=== PATIENT | male | born 1990 | race Caucasian/White ===

== ENCOUNTER → 2020-04-21 10:24 | Outpatient (CLI) | payer OTHER, SELFPAY ==
--- NOTE | ~2020-04-21 | US_ITS ---
EXAMINATION: US abdomen complete DATE: 04/21/2020 10:47 INDICATION: Abnormal liver function tests. TECHNIQUE: Multiple grayscale and Doppler ultrasound images of the abdomen were obtained. COMPARISON: None FINDINGS: Abdominal aorta is normal in caliber. Inferior vena cava is normal. The visualized portions of the head and body of the pancreas are normal. There is diffuse hepatic steatosis. No liver surfac e nodularity. There is normal flow in main portal vein. The gallbladder is normal in size. No gallsto froy or gallbladder wall thickening. There was no sonographic Pereyra sign. The common duct is normal a nd measures 4 mm. The spleen is normal. The kidneys are normal. IMPRESSION: 1. Diffuse hepatic steatosis. Reviewed, dictated and finalized at location A. ER COVERSTITCH
== END ==
PROVIDERS: PCP Physician Assistant; Visit Provider Physician Assistant
DX: R79.89 Other specified abnormal findings of blood chemistry (principal); R10.11 Right upper quadrant pain; K76.0 Fatty (change of) liver, not elsewhere classified
CPT/HCPCS: 76700

== ENCOUNTER → 2021-10-06 12:48 | Outpatient (CLI) | payer OTHER, SELFPAY ==
--- NOTE | ~2021-10-06 | XR_ITS ---
EXAMINATION: XR foot LT min 3V DATE: 10/06/2021 13:03 INDICATION: Left great toe pain. TECHNIQUE: 4 views of left foot were obtained. COMPARISON: None. FINDINGS: Bone alignment is normal. No fracture. There is mild osteoarthritis of first and fifth meta tarsophalangeal joints. There is an enthesophyte at posterior aspect of calcaneal tuberosity. IMPRESSION: 1. Mild polyarticular osteoarthritis. Reviewed, dictated and finalized at location A.
== END ==
PROVIDERS: PCP Physician Assistant; Visit Provider Physician Assistant
DX: M79.675 Pain in left toe(s) (principal); M19.072 Primary osteoarthritis, left ankle and foot
CPT/HCPCS: 73630

== ENCOUNTER 2024-02-23 20:24 | Emergency (ER) | payer OTHER, SELFPAY ==
--- NOTE | ~2024-02-23 | CT_ITS ---
Non-contrast Head CT History: Syncope Technique: Axial non-contrast imaging of the brain was performed. Dose reduction technique was used on this scan by utilizing automated exposure control and iterative reconstruction technique. The dose -length product (DLP) was 681.00 mGy-cm. Findings: There is no evidence of intracranial hemorrhage, mass lesion, or acute infarct. Brain par enchyma appears normal. The ventricles and subarachnoid spaces are normal in size. The calvarium ap pears normal. The visualized paranasal sinuses and mastoid air cells are clear. Impression: No significant abnormality seen. Reviewed, dictated and finalized at location . Impression: No significant abnormality seen.
--- NOTE | ~2024-02-23 | XR_ITS ---
XR chest 2V DATE: 02/23/2024 21:05 INDICATION: Syncopal episode. History of hypertension. TECHNIQUE: PA and lateral views COMPARISON: None FINDINGS: Normal heart size. No hilar or mediastinal enlargement. No pulmonary infiltrate or consolid ation, pleural effusion or pulmonary vascular congestion or pneumothorax. Included skeletal structures are unremarkable. IMPRESSION: No active cardiopulmonary disease Reviewed, dictated and finalized at location A.
[2024-02-23 20:27] VITALS: BP 147/84; PULSE 100; RESP 14; TEMP 36.6; O2SAT 99
--- NOTE | 2024-02-23 20:32 | ECG_ITS ---
Test Date: 2024-02-23 20:49:23 Measurements Intervals [place] Rate: 91 P: 53 NE: 145 QRS: 12 QRSD: 98 T: 45 QT: 332 QTc: 410 Interpretive Statements SINUS RHYTHM VOLTAGE CRITERIA FOR LVH CONSIDER INFERIOR INFARCT, AGE INDETERMINATE ABNORMAL ECG No previous ECG available for comparison Electronically Signed On 02-24-2024 06:29:43 CDT by Stan Ham D.O.
[2024-02-23 21:08] LABS: Basophils Absolute Auto 0.1 K/mm3 (0.0-0.1); Basophils Percent Auto 0.9 % (0.2-1.2); Eosinophils Absolute Auto 0.2 K/mm3 (0-0.3); Hematocrit 44.2 % (42.0-52.0); Hemoglobin 14.9 g/dL (14.0-18.0); Immature Granulocyte Absolute 0.04 K/mm3 (0.00-0.031); Immature Granulocyte Percent A 0.5 % (0-0.5); Lymphocytes Absolute Auto 2.65 K/mm3 (0.9-3.2); Lymphocytes Percent Auto 35.8 % (18.3-44.2); Mean Corpuscular HGB Conc 33.7 g/dl (32-36); Mean Corpuscular Hemoglobin 29.7 pg (26-34); Mean Platelet Volume 10.3 fl (7.4-10.4); Monocytes Absolute Auto 0.7 K/mm3 (0.1-0.6); Monocytes Percent Auto 9.5 % (2.6-8.5); Neutrophils Absolute Auto 3.8 K/mm3 (1.3-6.7); Neutrophils Percent Auto 51.3 % (45.5-73.1); Platelet Count Result 224 k/mm3 (150-375); Red Blood Count 5.02 M/mm3 (4.6-6.20); Red Cell Distribution Width 13.3 % (11.5-14.5); White Blood Count 7.4 K/mm3 (4.5-10.0)
[2024-02-23 21:23] LABS: Alanine Aminotransferase 33 U/L (6-50); Albumin Level 4.6 g/dL (3.5-5.1); Alkaline Phosphatase 83 U/L (38-126); Anion Gap 12 mmol/L (4-12); Aspartate Amino Transferase 31 U/L (17-59); Bilirubin,Total 0.3 mg/dL (0.2-1.3); Blood Urea Nitrogen 17 mg/dL (9-20); Calcium 9.3 mg/dL (8.4-10.2); Carbon Dioxide 24 mmol/L (22-30); Chloride 101 mmol/L (98-107); Estimated CRCL calculation 123 ml/min; Estimated Glomerular Filt Rate > 60; Glucose 139 mg/dL (65-110); Potassium 3.7 mmol/L (3.4-5.0); Sodium 137 mmol/L (137-145)
[2024-02-23 22:07] VITALS: BP 136/76; PULSE 94; RESP 18; O2SAT 100
[2024-02-23 22:08] VITALS: BP 145/76; BP 145/93; PULSE 93
[2024-02-24 00:07] LABS: Magnesium 1.8 mg/dL (1.6-2.3)
[2024-02-24 00:19] LABS: Troponin I < 0.012 ng/mL (0.000-0.034)
[2024-02-24] MEDS: SODIUM CHLORIDE 0.9% IV 1,000 ML 999 ML IV CONT (00:38)
[2024-02-24 00:49] LABS: Add Urine Microscopic? NO; Appearance Urine Clear (Clear); Bilirubin Urine Negative (Negative); Blood Urine Negative (Negative); Color Urine Yellow (Yellow); Glucose Urine UA Negative (Negative); Ketones Urine Trace mg/dL (Negative); Leukocyte Esterase Ur Negative LEU/UL (Negative); Nitrate Urine Negative (Negative); Protein Urine Negative (Negative); Specific Grav Ur 1.019 (1.001-1.035); pH Urine 5.5 (5.0-9.0)
[2024-02-24 00:52] LABS: Lactic Acid Reflex 1.3 mmol/L (0.7-2.0)
[2024-02-24 00:55] LABS: Prothrombin Time 13.7 Seconds (11.1-14.7)
[2024-02-24 00:56] LABS: Partial Thromboplastin Time 27.4 Seconds (22.3-36.8)
[2024-02-24 01:10] LABS: D Dimer < 0.27 ug/mL (<0.48)
--- NOTE | 2024-02-24 01:13 | ED.SYNCOPE ---
HPI - Syncope General Chief Complaint: Syncope Stated Complaint: passed out hit head non responsive for 5 seconds Time Seen by Provider: 02/23/24 22:06 History of Present Illness HPI narrative: Patient is a 33-year-old male presents to the ER after a syncopal episode. He reports he took a hit off a marijuana vape, walked into his kitchen, began to feel dizzy, called out to his , then fell to the ground. Patient's reports he hit his head on the cabinet. Patient endorses positive loss of consciousness for 5 seconds. He reports his brought him to the ER. Patient has a history of high blood pressure and takes Nebivolol every day for about a year. He reports he vapes marijuana periodically, but not every day. Patient reports he buys his vapes at a dispensary. He reports he has never had a syncopal episode and has no history of diabetes. Patient denies any chest pain, shortness of breath, and other signs of illness. Related Data Allergies Allergy/AdvReac Type Severity Reaction Status Date / Time cefaclor Allergy Rash Verified 02/23/24 20:31 Review of Systems Review of Systems: All systems reviewed & are unremarkable except as noted in HPI and below Exam Narrative: GENERAL: Well appearing, well-nourished, non-toxic, in no acute distress. HEAD: Normocephalic, atraumatic. NECK: Supple. No adenopathy, no masses. RESPIRATORY: Airway patent, respirations nonlabored. Clear to auscultation bilaterally, no rales, rhonchi, wheezing. CARDIOVASCULAR: Regular rate and rhythm without murmurs, rubs, or gallops. Peripheral pulses 2+ and equal bilaterally. ABDOMINAL: Soft, nontender, nondistended, no hepatosplenomegaly. Normoactive BS. MUSCULOSKELETAL: Moves all extremities. Strength/ROM intact without gross deformities. SKIN: Warm, dry, normal color. No rashes. NEURO: A&O X3. Speech clear. Cranial nerves II-XII grossly intact. No ataxic movements. PSYCHIATRIC: Appropriate mood and affect. Normal interaction. Course Vital Signs Vital signs: Vital Signs Temperature 36.6 C 02/23/24 20:27 Pulse Rate 100 02/23/24 20:27 Respiratory Rate 14 02/23/24 20:27 Blood Pressure 147/84 H 02/23/24 20:27 Pulse Oximetry 99 02/23/24 20:27 Oxygen Delivery Room Air 02/23/24 20:27 Temperature 36.6 C 02/24/24 01:25 Pulse Rate 79 02/24/24 01:25 Respiratory Rate 18 02/24/24 01:25 Blood Pressure 124/64 02/24/24 01:25 Pulse Oximetry 99 02/24/24 01:25 Oxygen Delivery Room Air 02/23/24 20:27 MDM - Syncope MDM Narrative Medical decision making narrative: Patient is a 33-year-old male presents to the ER after a syncopal episode. He reports he took a hit off a marijuana vape, walked into his kitchen, began to feel dizzy, called out to his , then fell to the ground. Patient's reports he hit his head on the cabinet. Patient endorses positive loss of consciousness for 5 seconds. He reports his brought him to the ER. Patient has a history of high blood pressure and takes Nebivolol every day for about a year. He reports he vapes marijuana periodically, but not every day. Patient reports he buys his vapes at a dispensary. He reports he has never had a syncopal episode and has no history of diabetes. Patient denies any chest pain, shortness of breath, and other signs of illness. Patient's physical exam was unremarkable. His blood work is all within normal limits except for his glucose which is elevated to 139. Will give patient 1 L normal saline IV bolus, scan patient's head for trauma, and re-evaluate. Patient denies any pain at this time. Patient CT scan was negative for any acute abnormalities. Patient reports he has been feeling well the whole time he has been in the ER. Upon further discussion patient believes it may have been the marijuana vape that caused his syncopal episode earlier. He and his would like for patient to be discharged. Patient is in agreemen
[2024-02-24 01:25] VITALS: BP 124/64; PULSE 79; RESP 18; TEMP 36.6; O2SAT 99
[2024-02-24 02:53] VITALS: BP 150/91; PULSE 77; RESP 18; O2SAT 96
[2024-02-24 03:28] LABS: Hemoglobin A1C 5.4 % (<5.7)
== END 2024-02-24 02:55 | disposition home or self-care (01) ==
PROVIDERS: Emergency Medicine; Emergency Provider Registered Nurse; PCP Physician Assistant
DX: R55 Syncope and collapse (principal); T40.715A Adverse effect of cannabis, initial encounter; E86.0 Dehydration; W22.03XA Walked into furniture, initial encounter
CPT/HCPCS: 36415; 70450; 71046; 80053; 81003; 83036; 83605; 83735; 84484; 85025; 85380; 85610; 85730; 93005; 96360; 96361; 99284; J7030

== ENCOUNTER 2025-04-05 09:50 | Emergency (ER) | payer OTHER, SELFPAY ==
--- OUTSIDE RECORDS SUMMARY | 2024-04-03 07:00 | XMS_ITS ---
Author Organization [facility] Address [address] [place] [address] Care Team Providers Care Manager Garden Name Role Phone Luci Lai Primary Care Provider REASON FOR VISIT low testosterone and V D Encounters Encounter Location Date Provider Diagnosis [facility] - Luci Lai [address] [place] [address] 04/03/2024 Luic Lai Plan Of Treatment No Information Progress Notes * Damaso BARNETTyDOB: [birth year] (34 yo M)Acc No.[id number]:04/03/2024 Progress Notes Patient: Miguel Ángel LAM Provider: Megan Lai MD :1990 A ge:33 Y S ex:Male Date:04/03/2024 Address:[address] [place], [place] [id number] Subjective: * Chief Complaints: * 1 . low testosterone and V D. * Medical History: Objective: * Vitals: Assessment: Plan: * Treatment: * Billing Information: * Visit Code: * Procedure Codes: * Electronic signature of Lukas Lai MD on 04/05/2025 at 10:39 AM AUTHORIZATION REPRESENTATIVE Sign off status: Pending * Provider: Megan Lai MD Date: 06/03/2023 Generated for Darshan ng/Faedyg/eTransmitting on: 06/05/2024 10:39 AM AUTHORIZATION REPRESENTATIVE
--- OUTSIDE RECORDS SUMMARY | 2024-04-03 07:00 | XMS_ITS ---
Author Organization [facility] Address [address] [place], [place] [address] Care Team Providers Care Truss Assembler Name Role Phone Luci Lai Primary Care Provider REASON FOR VISIT low testosterone and V D Encounters Encounter Location Date Provider Diagnosis [facility] [address] Lai [address] [place] [address] 04/03/2024 Luci Lai Plan Of Treatment No Information Progress Notes * Damaso BARNETTyDOB: [birth year] (34 yo M)Acc No.[id number]:04/03/2024 Progress Notes Patient: Miguel Ángel Chen Provider: Megan Lai MD :1990 A ge:33 Y S ex:Male Date:04/03/2024 Address:[address] [place], [place] [id number] Subjective: * Chief Complaints: * l ow testosterone and V D * Electronic signature of Lukas Lai MD on 04/05/2025 at 10:39 AM VAULT MECHANIC Sign off status: Pending * Provider: Megan Lai MD Date: 06/03/2023 Generated for Printi ng/Faxing/eTransmitting on: 06/05/2024 10:39 AM VAULT MECHANIC
--- OUTSIDE RECORDS SUMMARY | 2024-04-18 15:00 | XMS_ITS ---
Author Organization [facility] Address [address] [place] [address] Care Team Providers Care Regulatory Internship Name Role Phone Luci Lai Primary Care Provider Migration, Provider Unavailable Unavailable Allergies Allergen (clinical drug ingredient) Drug/Non Drug Allergy documented on EMR Reaction Allergy Type Onset Date Status cefaclor Cefaclor Unknown Drug Allergy Active [facility] Conversion Encounter Medications Medication SIG (Take, Route, Frequency, Duration) Notes Start Date End Date Status Vyvanse 30 MG ; Duration: 30 Days Active ARIPiprazole 10 MG ; Duration: 30 Days Active ALPRAZolam 0.25 MG ; Duration: 10 Days Active buPROPion HCl ER (XL) 150 MG 1 tab(s) or ally every 24 hours; Duration: 30 day(s) 04/10/2024 Active Nebivolol HCl 5 MG TAKE 1 TABLET BY PRINCE TH ONCE DAILY; Duration: 90 Days Active dexAMETHasone 1 MG 1 tab(s) orally at 1 0 pm night before 8 am cortisol; Duration: 1 days 04/10/2024 Active Encounters [facility]counter [facility] [address] [place] [address] [facility]/18/[facility]24 Provider Migration Obesity, unspecified E66.9 Assessments Encounter Date Diagnosis (ICD Code) Assessment Notes Treatment Notes Treatment Clinical Notes Section Notes 04/18/2024 Obesity, unspecified (ICD-10 - E66.9) Plan Of Treatment Medication Medication Name Sig Start Date Stop Date Notes dexAMETHasone 1 MG 1 tab(s) orally at 1 0 pm night before 8 am cortisol; Duration: 1 days 04/10/2024 Progress Notes * Kimo BARNETTOB: [birth year] (34 yo M)Acc No.[id number]:04/18/2024 Patient: Miguel Ángel LAM Provider: Laura Wang :1990 A ge:33 Y S ex:Male Date:04/18/2024 Address:[address] [place] [address] Pcp:Luci Lai Subjective: * Chief Complaints: * [facility] . [facility] * Medical History: * Medications: T aking Vyvanse(Lisdexamfetamine Dimesylate) 30 MG Capsule , Taking buPROPion HCl ER (XL) 150 MG Tablet Extended Release 24 Hour 1 tab(s) orally every 24 hours , Taking Nebivolol HCl 5 MG Tablet TAKE 1 TABLET BY MOUTH ONCE DAILY , Taking ARIPiprazole 10 MG Tablet , Taking ALPRAZolam 0.25 MG Tablet * Allergies: C efaclor. Objective: * Vitals: Assessment: * Assessment: 1. O besity, unspecified - E66.9 Plan: * Treatment: * Billing Information: * Visit Code: * Procedure Codes: * Electronic signature of Prov ider Migration on 04/05/2025 at 10:39 AM NAIL KEGGER Sign off status: Pending * Provider: Laura Wang Date: 06/18/2023 Generated for Darshan garcia/Kumar/Lanieitting on: 06/05/2024 10:39 AM NAIL KEGGER
--- OUTSIDE RECORDS SUMMARY | 2024-04-18 15:00 | XMS_ITS ---
Author Organization [facility] Address [address] [place], [place] [address] Care Team Providers Care Client Services Assistant Name Role Phone Luci Lai Primary Care Provider [phone] Migration, Provider Unavailable Unavailable Allergies Allergen (clinical drug ingredient) Drug/Non Drug Allergy documented on EMR Reaction Allergy Type Onset Date Status cefaclor Cefaclor Unknown Drug Allergy Active REASON FOR VISIT [facility] Conversion Encounter Medications Medication SIG (Take, Route, Frequency, Duration) Notes Start Date End Date Status ALPRAZolam 0.25 MG Tablet ; Duration: 10 Days Active ARIPiprazole 10 MG Tablet ; Duration: 30 Days Active Nebivolol HCl 5 MG Tablet TAKE 1 TABLET BY MOUTH ONCE DAILY; Duration: 90 Days Active buPROPion HCl ER (XL) 150 MG Tablet Extended Release 24 Hour 1 tab(s) orally every 24 hours; Duration: 30 day(s) 04/10/2024 Active dexAMETHasone 1 MG Tablet 1 tab(s) orall y at 10 pm night before 8 am cortisol; Duration: 1 days 04/10/2024 Active Vyvanse 30 MG Capsule ; Duration: 30 Days Active Encounters Encounter Location Date Provider Diagnosis [address] [id number] 04/18/2024 Provider Migration Obesity, unspecified E66.9 Assessments Encounter Date Diagnosis (ICD Code) Assessment Notes Treatment Notes Treatment Clinical Notes Section Notes 04/18/2024 Obesity, unspecified (ICD-10 - E66.9) Plan Of Treatment Medication Medication Name Sig Start Date Stop Date Notes dexAMETHasone 1 MG Tablet 1 tab(s) orall y at 10 pm night before 8 am cortisol; Duration: 1 days 04/10/2024 Progress Notes * Kimo BARNETTOB: [birth year] (34 yo M)Acc No.[id number]:04/18/2024 Patient: Miguel Ángel Chen Provider: Laura Wang :1990 A ge:33 Y S ex:Male Date:04/18/2024 Address:[address] [place] [address] Pcp:Luci Lai Subjective: * Chief Complaints: * M [facility] To [facility] Conversion Encounter * Medications: T akingVyvanse 30 MG Capsule buPROPion HCl ER (XL) 150 MG Tablet Extended Release 24 Hour 1 tab(s) orally every 24 hours Nebivolol HCl 5 MG Tablet TAKE 1 TABLET BY MOUTH ONCE DAILY ARIPiprazole 10 MG Tablet ALPRAZolam 0.25 MG Tablet Taking Vyvanse 30 MG Capsule Taking buPROPion HCl ER (XL) 150 MG Tablet Extended Release 24 Hour 1 tab(s) orally every 24 hours Taking Nebivolol HCl 5 MG Tablet TAKE 1 TABLET BY MOUTH ONCE DAILY Taking ARIPiprazole 10 MG Tablet Taking ALPRAZolam 0.25 MG Tablet * Allergies: C efaclor Assessment: * Assessment: 1. O besity, unspecified - E66.9 Plan: * Treatment: * Electronic signature of Delfino bang Migration on 04/05/2025 at 10:39 AM INSTRUCTIONAL DEVELOPER Sign off status: Pending * Provider: Laura Wang Date: 06/18/2023 Generated for Darshan garcia/Kumar/Nazanin on: 06/05/2024 10:39 AM INSTRUCTIONAL DEVELOPER
--- OUTSIDE RECORDS SUMMARY | 2024-12-18 10:40 | XMS_ITS ---
Author Organization [facility] Address [address] [place], [place] [address] Care Team Providers Care Lab Analyst Name Role Phone Ming Luci Primary Care Provider Results Component Value Reference Range Flag Notes Presumptive Drug Test - Spec imen Type Urine Reviewed date:01/01/2025 09:14:57 PM Interpretation: Performing Lab: Notes/Report: Opiates Screen Negative 150 ng/mL ng/ml Benzodiazepines Screen Positive 150 ng/mL ng/ml H Amphetamines Screen Positive 600 ng/mL ng/ml H Cocaine Screen Negative 150 ng/mL ng/ml Methadone Screen Negative 150 ng/mL ng/ml 6-AMARIS Screen Negative 60 ng/mL ng/ml Methamphetamine Screen Negative 600 ng/mL ng/ml Fentanyl Screen Negative 9 ng/mL ng/ml Tricyclic Antidepressants Screen Negative 150 ng/mL ng/m l Buprenorphine Screen Negative 75 ng/mL ng/ml Cannabis Screen Positive 150 ng/mL ng/ml H Full Confirmation - Specimen Type Urine Reviewed date:01/01/2025 09:14:57 PM Interpretation: Performing Lab: Notes/Report: 6-AMARIS Negative 20 ng/mL ng/mL 7-Aminoclonazepam Negative 50 ng/mL ng/mL a-Hydroxyalprazolam 143 50 ng/mL ng/mL H Alprazolam 78 50 ng/mL ng/mL H Amphetamine >500 50 ng/mL ng/mL H Benzoylecgonine Negative 50 ng/mL ng/mL Buprenorphine Negative 25 ng/mL ng/mL Carisoprodol Negative 50 ng/mL ng/mL Clonazepam Negative 50 ng/mL ng/mL Codeine Negative 50 ng/mL ng/mL Cyclobenzaprine Negative 50 ng/mL ng/mL Diazepam Negative 50 ng/mL ng/mL EDDP Negative 50 ng/mL ng/mL Fentanyl Negative 3 ng/mL ng/mL Gabapentin Negative 500 ng/mL ng/mL Hydrocodone Negative 50 ng/mL ng/mL Hydromorphone Negative 50 ng/mL ng/mL Lorazepam Negative 50 ng/mL ng/mL MDMA Negative 50 ng/mL ng/mL Meprobamate Negative 50 ng/mL ng/mL Methadone Negative 50 ng/mL ng/mL Methamphetamine Negative 200 ng/mL ng/mL Morphine Negative 50 ng/mL ng/mL Naloxone Negative 50 ng/mL ng/mL Naltrexone Negative 50 ng/mL ng/mL Norbuprenorphine Negative 25 ng/mL ng/mL Nordiazepam Negative 50 ng/mL ng/mL Norfentanyl Negative 10 ng/mL ng/mL Norpropoxyphene Negative 50 ng/mL ng/mL Oxazepam Negative 50 ng/mL ng/mL Oxycodone Negative 50 ng/mL ng/mL Oxymorphone Negative 50 ng/mL ng/mL Pregabalin Negative 200 ng/mL ng/mL Propoxyphene Negative 50 ng/mL ng/mL Tapentadol Negative 50 ng/mL ng/mL Temazepam Negative 50 ng/mL ng/mL Tramadol Negative 50 ng/mL ng/mL THC >500 50 ng/mL ng/mL H Amitriptyline Negative 50 ng/mL ng/mL Carboxyzolpidem Negative 100 ng/mL ng/mL Desmethyldoxepin Negative 50 ng/mL ng/mL Doxepin Negative 50 ng/mL ng/mL Imipramine Negative 50 ng/mL ng/mL Methylphenidate Negative 50 ng/mL ng/mL Nortriptyline Negative 50 ng/mL ng/mL o-Desmethyltramadol Negative 50 ng/mL ng/mL Ritalinic Acid Negative 50 ng/mL ng/mL Desalkylflurazepam Negative 50 ng/mL ng/mL Flunitrazepam Negative 50 ng/mL ng/mL Flurazepam Negative 50 ng/mL ng/mL Ketamine Negative 50 ng/mL ng/mL Meperidine Negative 50 ng/mL ng/mL Mitragynine Negative 50 ng/mL ng/mL Norhydrocodone Negative 50 ng/mL ng/mL Norketamine Negative 50 ng/mL ng/mL Normeperidine Negative 50 ng/mL ng/mL Noroxycodone Negative 50 ng/mL ng/mL PCP Negative 25 ng/mL ng/mL Phentermine Negative 50 ng/mL ng/mL Zaleplon Negative 20 ng/mL ng/mL Trazodone Negative 50 ng/mL ng/mL REASON FOR VISIT uds Medications Medication SIG (Take, Route, Frequency, Duration) Notes Start Date End Date Status dexAMETHasone 1 MG Tablet 1 tab(s) orall y at 10 pm night before 8 am cortisol; Duration: 1 days 04/10/2024 Active Vyvanse 30 MG Capsule ; Duration: 30 Days Unknown buPROPion HCl ER (XL) 150 MG Tablet Extended Release 24 Hour 1 tab(s) orally every 24 hours; Duration: 30 day(s) 04/10/2024 Unknown Nebivolol HCl 5 MG Tablet TAKE 1 TABLET BY MOUTH ONCE DAILY; Duration: 90 Days Unknown ARIPiprazole 10 MG Tablet ; Duration: 30 Days Unknown metFORMIN HCl ER 500 MG Tablet Extended Release 24 Hour 1 tablet with evening meal Orally Once a day; Duration: 90 days 05/08/2024 Active ALPRAZolam 0.25 MG Tablet ; Duration: 10 Days Unknown Encounters Encounter Location Date Provider Diagnosis [facility] [place] [address] [facility] [place] [address] 12/18/2024 [place] termite control technician use of avila yariel Z79.899 Assessments Encounter Date Diagnosis (ICD Code) Assessment Notes Treatment Notes Treatment Clinical Notes Section Notes 12/18/2024 termite control technician use of drug (ICD-10 - Z79.899) Plan Of Treatment No Information History and Physical Notes * HPI (History of Present Illness) Category Sub-Category Detail Notes Category Not es HPI Presumptive UDS ordered to ensure the safety and efficacy of the patient's treatment plan, if the presumptive is inconsistent the test will reflex to a confirmation. This confirmation will provide precise identification and quantification of specific drugs and their metabolites, enabling accurate assessment of the patient's compliance. Detecting possible diversion is crucial for preventing misuse, adjusting the treatment regimen as needed, and ensuring optimal patient outcomes. The confirmatory test will guide appropriate clinical interventions and support the responsible management of controlled medications.See attached results with included risk stratification and medical nessessity statement. Progress Notes * Kimo BARNETTOB: [birth year] (34 yo M)Acc No.[id number]:12/18/2024 Patient: Miguel Ángel Chen Provider: Megan Lai MD :1990 A ge:34 Y S ex:Male Date:12/18/2024 Address:[address] [place], [place] [id number] Subjective: * Chief Complaints: * U ds * HPI: H PI: Presumptive UDS ordered to ensure the safety and efficacy of the patient's treatment plan, if the presumptive is inconsistent the test will reflex to a confirmation. This confirmation will provide precise identification and quantification of specific drugs and their metabolites, enabling accurate assessment of the patient's compliance. Detecting possible diversion is crucial for preventing misuse, adjusting the treatment regimen as needed, and ensuring optimal patient outcomes. The confirmatory test will guide appropriate clinical interventions and support the responsible management of controlled medications.See attached results with included risk stratification and medical nessessity statement. * Medications: T akingmetFORMIN HCl ER 500 MG Tablet Extended Release 24 Hour 1 tablet with evening meal Orally Once a day dexAMETHasone 1 MG Tablet 1 tab(s) orally at 10 pm night before 8 am cortisol Taking metFORMIN HCl ER 500 MG Tablet Extended Release 24 Hour 1 tablet with evening meal Orally Once a day Taking dexAMETHasone 1 MG Tablet 1 tab(s) orally at 10 pm night before 8 am cortisol UnknownVyvanse 30 MG Capsule buPROPion HCl ER (XL) 150 MG Tablet Extended Release 24 Hour 1 tab(s) orally every 24 hours Nebivolol HCl 5 MG Tablet TAKE 1 TABLET BY MOUTH ONCE DAILY ARIPiprazole 10 MG Tablet ALPRAZolam 0.25 MG Tablet Unknown Vyvanse 30 MG Capsule Unknown buPROPion HCl ER (XL) 150 MG Tablet Extended Release 24 Hour 1 tab(s) orally every 24 hours Unknown Nebivolol HCl 5 MG Tablet TAKE 1 TABLET BY MOUTH ONCE DAILY Unknown ARIPiprazole 10 MG Tablet Unknown ALPRAZolam 0.25 MG Tablet Assessment: * Assessment: 1. L anita term use of drug - Z79.899 (Primary) Plan: * Treatment: Value Reference Range 6 -AMARIS Negative 20 ng/mL - ng/mL * 7 -Aminoclonazepam Negative 50 ng/mL - ng/mL * a -Hydroxyalprazolam 143 H 50 ng/mL - ng/mL * A lprazolam 78 H 50 ng/mL - ng/mL * A mitriptyline Negative 50 ng/mL - ng/mL * A mphetamine >500 H 50 ng/mL - ng/mL * B enzoylecgonine Negative 50 ng/mL - ng/mL * B uprenorphine Negative 25 ng/mL - ng/mL * C arboxyzolpidem Negative 100 ng/mL - ng/mL * C arisoprodol Negative 50 ng/mL - ng/mL * C lonazepam Negative 50 ng/mL - ng/mL * C odeine Negative 50 ng/mL - ng/mL * C yclobenzaprine Negative 50 ng/mL - ng/mL * D esalkylflurazepam Negative 50 ng/mL - ng/mL * D esmethyldoxepin Negative 50 ng/mL - ng/mL * D iazepam Negative 50 ng/mL - ng/mL * D oxepin Negative 50 ng/mL - ng/mL * E DDP Negative 50 ng/mL - ng/mL * F entanyl Negative 3 ng/mL - ng/mL * F lunitrazepam Negative 50 ng/mL - ng/mL * F lurazepam Negative 50 ng/mL - ng/mL * G abapentin Negative 500 ng/mL - ng/mL * H ydrocodone Negative 50 ng/mL - ng/mL * H ydromorphone Negative 50 ng/mL - ng/mL * I mipramine Negative 50 ng/mL - ng/mL * K etamine Negative 50 ng/mL - ng/mL * L orazepam Negative 50 ng/mL - ng/mL * M DMA Negative 50 ng/mL - ng/mL * M eperidine Negative 50 ng/mL - ng/mL * M eprobamate Negative 50 ng/mL - ng/mL * M ethadone Negative 50 ng/mL - ng/mL * M ethamphetamine Negative 200 ng/mL - ng/mL * M ethylphenidate Negative 50 ng/mL - ng/mL * M itragynine Negative 50 ng/mL - ng/mL * M orphine Negative 50 ng/mL - ng/mL * N aloxone Negative 50 ng/mL - ng/mL * N altrexone Negative 50 ng/mL - ng/mL * N orbuprenorphine Negative 25 ng/mL - ng/mL * N ordiazepam Negative 50 ng/mL - ng/mL * N orfentanyl Negative 10 ng/mL - ng/mL * N orhydrocodone Negative 50 ng/mL - ng/mL * N orketamine Negative 50 ng/mL - ng/mL * N ormeperidine Negative 50 ng/mL - ng/mL * N oroxycodone Negative 50 ng/mL - ng/mL * N orpropoxyphene Negative 50 ng/mL - ng/mL * N ortriptyline Negative 50 ng/mL - ng/mL * o -Desmethyltramadol Negative 50 ng/mL - ng/mL * O xazepam Negative 50 ng/mL - ng/mL * O xycodone Negative 50 ng/mL - ng/mL * O xymorphone Negative 50 ng/mL - ng/mL * P CP Negative 25 ng/mL - ng/mL * P hentermine Negative 50 ng/mL - ng/mL * P regabalin Negative 200 ng/mL - ng/mL * P ropoxyphene Negative 50 ng/mL - ng/mL * R italinic Acid Negative 50 ng/mL - ng/mL * T apentadol Negative 50 ng/mL - ng/mL * T emazepam Negative 50 ng/mL - ng/mL * T HC >500 H 50 ng/mL - ng/mL * T ramadol Negative 50 ng/mL - ng/mL * T razodone Negative 50 ng/mL - ng/mL * Z aleplon Negative 20 ng/mL - ng/mL * Luci Lai 01/01/2025 09:14 :42 PM CDT >reviewed ?LAB: Presumptive Drug Test - Specimen Type Urine (Collection Date & Time - 12/18/2024 03:05 PM)* Value Reference Range A mphetamines Screen Positive H 600 ng/mL - ng/ml * B enzodiazepines Screen Positive H 150 ng/mL - ng/ml * C ocaine Screen Negative 150 ng/mL - ng/ml * M ethamphetamine Screen Negative 600 ng/mL - ng/ml * M ethadone Screen Negative 150 ng/mL - ng/ml * O piates Screen Negative 150 ng/mL - ng/ml * T ricyclic Antidepressants Screen Negative 150 ng/m L - ng/ml * C annabis Screen Positive H 150 ng/mL - ng/ml * 6 -AMARIS Screen Negative 60 ng/mL - ng/ml * F entanyl Screen Negative 9 ng/mL - ng/ml * B uprenorphine Screen Negative 75 ng/mL - ng/ml * Luci Lai 01/01/2025 09:14 :42 PM CDT >reviewed * Procedure Codes: 8 0307 DRUG TEST PRSMV CHEM [id number] Drug test def 1-7 classes Billing Information: * Procedure Codes: 10351 DRUG TEST PRSMV CHEM ANLYZR. G0480 Drug test def 1-7 classes. * Electronic signature of Lukas Lai MD on 04/05/2025 at 10:38 AM MARKETING ENGINEER Sign off status: Pending * Provider: Megan Lai MD Date: 0 12/18/2024 Generated for Darshan garcia/Kumar/Nazanin on: 06/05/2024 10:38 AM MARKETING ENGINEER
--- NOTE | ~2025-04-05 | CT_ITS ---
CT abdomen pelvis w con Clinical History: N/V intermittently 2 weeks . Comparison: Abdominal ultrasound 04/21/2020 Technique: Axial images lung bases to symphysis pubis IV contrast information not listed in PACS Coronal, sagittal reformats CT images acquired with automatic exposure control for dose reduction DLP: 466 mGy-cm Findings: Lung bases: Clear. Visualized heart and pericardium: Unremarkable. Liver: Enlarged. Steatosis. Gallbladder: Unremarkable. Spleen: Unremarkable. Pancreas: Unremarkable. Adrenal glands: Unremarkable. Kidneys: Right kidney- No hydronephrosis. No renal stones. Left kidney- No hydronephrosis. No renal stones. Distal esophagus/stomach: Mild distal esophageal wall thickening/esophagitis. Small bowel loops: Normal caliber and wall thickness. Colon: Normal caliber and wall thickness. Normal RLQ appendix. Nodes: No enlarged nodes. Peritoneum: No ascites. No free air. Urinary bladder: Unremarkable. Prostate: Unremarkable. Bones: No acute bony abnormality. Soft tissues: Unremarkable. Aorta: No aneurysm or dissection. IVC: Unremarkable. Main portal vein/SMV/splenic vein: Patent. IMPRESSION: 1. Mild distal esophagitis. 2. Otherwise no acute findings. Reviewed, dictated and finalized at location R. [employer] TECHN[employer]
[2025-04-05 09:55] VITALS: BP 153/91; PULSE 109; RESP 17; TEMP 37.2; O2SAT 98
--- OUTSIDE RECORDS SUMMARY | 2025-04-05 10:39 | XMS_ITS | Encounter Summary ---
Author Organization [facility] Healthcare Address [address] [place] [address] Care Team Providers Care Magnetic Resonance Technologist Name Role Phone Gracia Lopez Primary Care Provider [phone] Reason for Visit * Reason Onset Date Comments Nausea And Vomitting 04/05/2025 Encounter Details Date Type Department Care Team (Late st Contact Info) Description 04/05/2025 Nurse Triage [facility] Family Medicine [address] [place] [address] Gracia Lopez PA [address] [facility] [email or web address] [place] [address] Social History Tobacco Use Types Packs/Day Years Used Date Smoking Tobacco: Former Cigarettes 0.3 15 1 07/04/2005 - 05/03/2021 Smokeless Tobacco: Never Alcohol Use Standard Drinks/Week Comments Yes 1 (1 standard drink = 0.6 oz pur e alcohol) PHQ-2 Answer Date Recorded PHQ-2 Total Score (If total score is 3 or more points, staff should administer the PHQ-9) 0 04/01/2025 PHQ-9 Answer Date Recorded PHQ-9 Total Score 10 11/06/2023 AUDIT-C Answer Date Recorded Q1: How often do you have a drink containing alc ohol? 2-4 times a month 04/01/2025 Q2: How many drinks containi ng alcohol do you have on a typical day when you are drinking? 1 or 2 04/01/2025 Q3: How often do you have si x or more drinks on one occasion? 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 Called and made pt aware. GE FISHERMAN * Telephone Encounter - Trisha Salcedo RN - 04/05/2025 8:31 AM SPONGE FISHERMAN Reason for Conversation Nausea And Vomitting Earlier this morning Background N/V with vomiting 4 times since 2 am. Very thirsty and fatigue. Moderate intermittent cramping around navel. Had a small bowel movement this morning. Symptoms returned on Sat, felt fine on Saturday. Eating the BRAT diet and feeling better until this morning. Denies mouth dry, fever, H/A, dizzy, dry mouth, vomiting blood or coffee grounds, OR recent head injury. Seen in office on 04/01/25 for same symptoms. Interventions tried: Zofran Disposition See Today in Office .declines appointment. Requesting advice from Gracia Lopez PA. Please advise Miguel Ángel Nuñez of appointment determination and/or your recommendations. Home care reviewed. Advised Miguel Ángel Nuñez to call back if symptoms worsen or with any other concerns/questions. Miguel Ángel Nuñez verbalized understanding. Reason for Disposition MILD to MODERATE vomiting (e.g., 1-5 times/day) and lasts > 48 hours (2 days) Protocols Used [id number] GE FISHERMAN * Telephone Encounter - Trisha Salcedo RN - 04/05/2025 8:30 AM SPONGE FISHERMAN Regarding: nausea, fatigue, vomiting, very thirsty ----- Message from Joya Day sent at 04/05/2025 8:22 AM SPONGE FISHERMAN ----- Symptom Based Call Chief Complaint(s): nausea, fatigue, vomiting, very thirsty Duration: Today What type of symptom(s) is the patient experiencing? Non-Emergent. Is this a new or reoccurring symptom(s)? new What have you tried to help your symptom(s)? Kalia Why was appointment not scheduled? Appointment availability did not meet the patient's need. Additional Comments: patient was seen on 04/01/25 for these same symptoms, he was advised to do a BRAT diet, which he did and he started feeling better until today at 2am. He's nauseas, vomiting, very tired, very thirsty, possibly dehydrated. When he saw CORNELL Fagan on 04/01/25 she told him he was onthe verge of being dehydrated. Patient doesn't know what else to do, he's been drinking fluids. Does message need to be routed? Yes-Action Needed GE FISHERMAN documented in this encounter Plan of Treatment Not on file documented as of this encounter Visit Diagnoses Not on filedocumented in this encounter Care Teams Magnetic Resonance Technologist Relationship Specialty Start Date End Date Gracia Lopez PA [address] [facility] [address] [place] [address] PCP - General Internal Medicine 12/23/19 documented as of this encounter
--- OUTSIDE RECORDS SUMMARY | 2025-04-05 10:39 | XMS_ITS | Clinical Summary ---
Author Organization [facility] [address] Address [address] [place] [address] Care Team Providers Care Kiln Worker Name Role Phone Renetta Baumann APRN, FAMILY LAWYER Unavailable Provider, Unknown Primary Care Provider Unavaila ble Allergies Active Allergy Reactions Criticality Noted Date Comments Cefaclor Unknown 06/15/2009 Medications Naproxen Sodium (ALEVE) 220 MG Capsule Take 440 mg by mouth 3 times daily as needed. Active Active Problems Problem Noted Date Diagnosed Date Rectal bleeding 06/07/2016 Immunizations Immunization Administration Dates Next Due DTAP VACCINE 03/07/1992,03/06/1991,01/09/1991 ,1990 HIB Vaccine (PRP-T) 12/07/1991,03/06/1991,1990,1990 Hepatitis B Vaccine 05/21/2002,12/17/2001,2001 Inactivated Polio Vaccine 12/15/1994,03/07/1992, 01/09/1991,1990 MMR Vaccine 12/15/1994,12/07/1991 PUR MENINGOCOCCAL IM 11/14/2009 Pur Varicella Virus SQ 11/14/2009 TD VACCINE 12/26/2005 Varicella Vaccine Live 09/11/1995 Family History Relation Name Status Comments Father Alive Mother Alive Sister 1 Alive Sister 2 Alive Social History Tobacco Use Types Packs/Day Years Used Date Smoking Tobacco: Some Days Cigarettes Tobacco Cessation:Ready to Q uit: No; Counseling Given: Yes Comments:1-2 cigarettes per week Alcohol Use Standard Drinks/Week Comments Yes 4 (1 standard drink = 0.6 oz pur e alcohol) Sex and Gender Information Value Date Recorded Sex Assigned at Not on file Legal Sex Male 3:31 AM MIS DIRECTOR Gender Identity Not on file Sexual Orientation Not on file Last Filed Vital Signs Vital Sign Reading Time Taken Comments Blood Pressure 116/74 06/07/2016 1:09 PM MIS DIRECTOR Pulse 98 06/07/2016 1:09 PM MIS DIRECTOR Temperature 37.4 C (99.3 F) 06/07/2016 1:09 PM MIS DIRECTOR Respiratory Rate 18 06/07/2016 1:09 PM MIS DIRECTOR Oxygen Saturation 96% 06/07/2016 1:09 PM MIS DIRECTOR Inhaled Oxygen Concentration - - Weight 91.3 kg (201 lb 6 oz) 06/07/2016 1:09 PM MIS DIRECTOR Height 180.3 cm (5' 11) 06/07/2016 1:09 PM MIS DIRECTOR Body Mass Index 28.09 06/07/2016 1:09 PM MIS DIRECTOR Plan of Treatment Health Maintenance Due Date Last Done Comments Hepatitis C Virus (HCV) Screening 1990 DTaP/Tdap/Td Immunization (6 - Tdap) 12/27/2005 12/26/2005, 03/07/1992, 03/06/1991, Additional history exists Human Papillomavirus (HPV) Immunization (1 - 3-dose SCDM series) 2017 Influenza Immunization (#1) 2025 SARS-COV-2 Immunization ( season) 2025 Respiratory Syncytial Virus (RSV) Immunization (Adult) (1 - 1-dose 75+ series) 2065 Hepatitis B Immunization Completed 002, 12/17/2001, 11/17/2001 Meningococcal Immunization (ACWY) Aged Out 11/14/2009 No longer eligible based on patient's age to complete this topic Pneumococcal Immunization Combined Aged Out No longer eligible based on patient's age to complete this topic Rotavirus Immunization Aged Out No lo nger eligible based on patient's age to complete this topic Insurance [employer] [facility] [employer] [employer] Care Teams Kiln Worker Relationship Specialty Start Date End Date Provider, Unknown UNKNOWN PCP - General 07/13/16 Renetta Baumann, AMERICAN HISTORY PROFESSOR, FAMILY LAWYER [address] [place] [id number] Nurse Practitioner Advanced Practice Nurse 05/30/16
--- OUTSIDE RECORDS SUMMARY | 2025-04-05 10:39 | XMS_ITS | Clinical Summary ---
Author Organization [facility] [place] [address] [place] [address] Care Team Providers Care Bean Viner Name Role Phone Gracia Lopez Primary Care Provider [phone] Allergies Active Allergy Reactions Criticality Noted Date Comments Cefaclor Unknown 06/15/2009 Medications nebivoloL (BYSTOLIC) 5 mg tablet Take 1 tablet by mouth once daily 90 tablet 1 4 Active ALPRAZolam (XANAX) 0.25 mg tablet Take 1 tablet (0.25 mg total) by mouth every 8 (eight) hours 30 tablet 4 Active ergocalciferol (VITAMIN D) 50,000 unit capsule Take 1 capsule (50,000 Units total) by mouth once a week 12 capsule 3 4 Active metFORMIN XR (GLUCOPHAGE XR) 500 mg 24 hr tablet Take 1 tablet (500 mg total) by mouth daily with breakfast 90 tablet 1 5 Active buPROPion XL (WELLBUTRIN XL) 150 mg 24 hr tablet Take 1 tablet (150 mg total) by mouth daily 90 tablet 5 Active sildenafiL (VIAGRA) 50 mg tablet Take 1 tablet (50 mg total) by mouth daily as needed for erectile dysfunction 10 tablet 5 Active traZODone (DESYREL) 50 mg tablet TAKE 1 TO 2 TABLETS BY MOUTH AT BEDTIME FOR SLEEP . DO NOT EXCEED 100MG PER 24 HOURS 5 Active Rexulti 3 mg tablet TAKE 1 TABLET BY MOUTH ONCE DAILY . DO NOT EXCEED 3 MG PER 24 HOURS 5 Active buPROPion XL (WELLBUTRIN XL) 300 mg 24 hr tablet Take 1 tablet (300 mg total) by mouth daily 5 Active lisdexamfetamin e (VYVANSE) 50 mg capsule TAKE 1 CAPSULE BY MOUTH ONCE DAILY IN THE MORNING 5 Active methylphenidate ER (CONCERTA) 36 mg CR tablet TAKE 2 TABLETS BY MOUTH ONCE DAILY IN THE MORNING 5 Active ondansetron (ZOFRAN) 4 mg tablet Take 1 tablet (4 mg total) by mouth every 8 (eight) hours as needed for nausea or vomiting 20 tablet 5 Active Active Problems Problem Noted Date Diagnosed Date Snoring 02/03/2025 Assessment & Plan (02/03/2025 9:44 AM CDT): The patient presents with snoring, witnessed apneas by his and daytime fatigue. I will have him sign a release so that we can obtain the home sleep test report from the wardrobe custodian's office-Dr. Luci Lai. If this study is positive for B[place], I will then order a CPAP unit and he will follow up here in 3 months. Obesity (BMI 30-39.9) 11/09/2024 Assessment & Plan (11/09/2024 9:55 AM CDT): Discussed the patient's BMI. The BMI is above average. BMI management plan is completed. BMI Follow-up includes: nutrition counseling, exercise counseling and education provided. BMI 32.0-32.9,adult 11/09/2024 Assessment & Plan (11/09/2024 9:55 AM CDT): Discussed the patient's BMI. The BMI is above average. BMI management plan is completed. BMI Follow-up includes: nutrition counseling, exercise counseling and education provided. Vasovagal syncope 02/27/2024 Assessment & Plan (02/27/2024 10:32 PM CDT): Patient experienced a syncopal episode. Had workup at the ER and everything was essentially normal. Was given a bag of fluids. Patient states he never felt bad he rebounded right back and has felt good since he left the ER. No palpitations no other symptoms. Suspect this may have been a vasovagal event. Encouraged him to monitor very closely. His blood pressure is elevated but meat he feels like it may be due to anxiety. Encouraged to take some home readings and let us know what they are. Continue with his Bystolic. If he would experience any chest pain and other syncopal event if he would have palpitations or irregular heartbeat start to experience dizziness or lightheadedness he is to call immediately and/or go to the ER if it is after hours. He verbalizes understanding Lumbar back pain 05/17/2022 Assessment & Plan (05/17/2022 9:11 PM TRAIL CONSTRUCTION WORKER): This is a significant, separately identifiable problem that was evaluated and managed on the same day as the wellness exam Encouraged NSAIDS (if able to safely tolerate) or Tylenol. Topical preparations like Lidocaine patches, Biofreeze, ICYHOT etc as needed. Heat, stretching Avoid long periods of sitting/laying. Encouraged PT. Followup if has any problems controlling bowels or bladder or if sxs worsen. Great toe pain, left 10/14/2021 Assessment & Plan (01/21/2022 1:27 AM CDT): Patient is use had toe pain. Recommend checking uric acid. Continue allopurinol 100 mg b.i.d. Assessment & Plan (10/14/2021 2:39 PM CDT): Patient has had left great toe pain for the last couple of months. Suspect this could be gout. Will go ahead and check uric acid level. He is also had a fracture in this area so it could be arthritis ball will least evaluate further. History of smoking 05/12/2021 Assessment & Plan (08/24/2023 3:08 PM CDT): Encouraged smoking cessation. Discussed 3 minutes. Reviewed options for assistance with cessation. Reviewed terminal system operator sequela associated with smoking. Pt declines assistance at this time but may contact the office at anytime for further help as they desire. Assessment & Plan (04/02/2023 8:36 PM CDT): Encouraged smoking cessation. Discussed 3 minutes. Reviewed options for assistance with cessation. Reviewed half-way sequela associated with smoking. Pt declines assistance at this time but may contact the office at anytime for further help as they desire. Assessment & Plan (03/10/2023 2:26 PM CDT): Encouraged smoking cessation. Discussed 3 minutes. Reviewed options for assistance with cessation. Reviewed terminal system operator sequela associated with smoking. Pt declines assistance at this time but may contact the office at anytime for further help as they desire. Assessment & Plan (04/22/2022 10:56 PM TRAIL CONSTRUCTION WORKER): Encouraged smoking cessation. Discussed 3 minutes. Reviewed options for assistance with cessation. Reviewed half-way sequela associated with smoking. Pt declines assistance at this time but may contact the office at anytime for further help as they desire. Assessment & Plan (01/21/2022 1:26 AM CDT): Encouraged smoking cessation. Discussed 3 minutes. Reviewed options for assistance with cessation. Reviewed terminal system operator sequela associated with smoking. Pt declines assistance at this time but may contact the office at anytime for further help as they desire. Assessment & Plan (05/12/2021 10:35 PM TRAIL CONSTRUCTION WORKER): Encouraged smoking cessation. Discussed 3 minutes. Reviewed options for assistance with cessation. Reviewed half-way sequela associated with smoking. Pt declines assistance at this time but may contact the office at anytime for further help as they desire. Encouraged to not light a cigarette as he gets in the car and leaves his driveway. This sounds like this is just to have it and not as much even addiction. He voiced understanding will try this. Fatigue 05/12/2021 Assessment & Plan (05/29/2024 10:34 AM TRAIL CONSTRUCTION WORKER): Probably multifactorial. Check labs and followup to re-evaluate Assessment & Plan (05/11/2023 6:29 PM TRAIL CONSTRUCTION WORKER): Probably multifactorial. Check labs and followup to re-evaluate Assessment & Plan (05/17/2022 9:10 PM TRAIL CONSTRUCTION WORKER): Probably multifactorial. Check labs and followup to re-evaluate Assessment & Plan (10/14/2021 2:38 PM CDT): Probably multifactorial. Check labs and followup to re-evaluate Patient is also send concerned that is testosterone might be low as he does note decreased libido at times. Will go ahead and also check a testosterone. Discussed at length if testosterone is low would recommend referral to Urology to further evaluate with a full hormonal evaluation due to his age. Reviewed risks benefits and alternatives of testosterone replacement verses alternatives. Assessment & Plan (05/12/2021 10:35 PM TRAIL CONSTRUCTION WORKER): Probably multifactorial. Check labs and followup to re-evaluate Mixed hyperlipidemia 05/12/2021 Assessment & Plan (05/29/2024 10:34 AM TRAIL CONSTRUCTION WORKER): Encouraged patient to follow low fat/low chol diet like the Mediterranean diet. Increase good fats in the diet. Increase exercise. Monitor labs as needed. Assessment & Plan (08/24/2023 3:08 PM CDT): Encouraged patient to follow low fat/low chol diet like the Mediterranean diet. Increase good fats in the diet. Increase exercise. Monitor labs as needed. Assessment & Plan (05/11/2023 6:29 PM TRAIL CONSTRUCTION WORKER): Encouraged patient to follow low fat/low chol diet like the Mediterranean diet. Increase good fats in the diet. Increase exercise. Monitor labs as needed. Hesitant to start a statin due to LFTs. Continue to monitor Assessment & Plan (05/17/2022 9:10 PM TRAIL CONSTRUCTION WORKER): Encouraged patient to follow low fat/low chol diet like the Mediterranean diet. Increase good fats in the diet. Increase exercise. Monitor labs as needed. Assessment & Plan (04/22/2022 10:57 PM TRAIL CONSTRUCTION WORKER): Encouraged patient to follow low fat/low chol diet like the Mediterranean diet. Increase good fats in the diet. Increase exercise. Monitor labs as needed. Assessment & Plan (01/21/2022 1:26 AM CDT): Encouraged patient to follow low fat/low chol diet like the Mediterranean diet. Increase good fats in the diet. Increase exercise. Monitor labs as needed. Assessment & Plan (05/12/2021 10:35 PM TRAIL CONSTRUCTION WORKER): Encouraged patient to follow fat/low chol diet like the Mediterranean diet. Increase good fats in the diet. Increase exercise. Monitor labs as needed. Primary hypertension 01/28/2021 Assessment & Plan (05/29/2024 10:34 AM TRAIL CONSTRUCTION WORKER): Bp is stable/in acceptable range for any co-morbidities. Encouraged to limit sodium intake and exercise for weight control. Stable with Bystolic which is also helping with the anxiety Assessment & Plan (02/27/2024 10:32 PM CDT): Bp is stable/in acceptable range for any co-morbidities. Encouraged to limit sodium intake and exercise for weight control. Continue with Bystolic. Encouraged to call with some home readings Assessment & Plan (11/17/2023 9:20 AM CDT): Bp is stable/in acceptable range for any co-morbidities. Encouraged to limit sodium intake and exercise for weight control. Continue Bystolic 5 Assessment & Plan (05/11/2023 6:28 PM TRAIL CONSTRUCTION WORKER): Bp is stable/in acceptable range for any co-morbidities. Encouraged to limit sodium intake and exercise for weight control. Continue Bystolic 5 Assessment & Plan (04/02/2023 8:37 PM CDT): Bp is stable/in acceptable range for any co-morbidities. Encouraged to limit sodium intake and exercise for weight control. Continue Bystolic Assessment & Plan (03/10/2023 2:26 PM CDT): Bp is stable/in acceptable range for any co-morbidities. Encouraged to limit sodium intake and exercise for weight control. Continue Bystolic 5 Assessment & Plan (10/07/2022 11:31 PM CDT): Bp is stable/in acceptable range for any co-morbidities. Encouraged to limit sodium intake and exercise for weight control. Continue Bystolic 5 Assessment & Plan (05/17/2022 9:10 PM TRAIL CONSTRUCTION WORKER): Bp is stable/in acceptable range for any co-morbidities. Encouraged to limit sodium intake and exercise for weight control. Continue Bystolic Assessment & Plan (04/22/2022 10:56 PM TRAIL CONSTRUCTION WORKER): Bp is stable/in acceptable range for any co-morbidities. Encouraged to limit sodium intake and exercise for weight control. Continue Bystolic 5 Assessment & Plan (01/21/2022 1:26 AM CDT): Bp is stable/in accepBp is stable/in acceptable range for any co-morbidities. Encouraged to limit sodium intake and exercise for weight control. Continue Bystolic 5 mg Assessment & Plan (10/14/2021 2:42 PM CDT): Stable with Bystolic Bp is stable/in acceptable range for any co-morbidities. Encouraged to limit sodium intake and exercise for weight control. Assessment & Plan (05/12/2021 10:35 PM TRAIL CONSTRUCTION WORKER): Bp is stable/in acceptable range for any co-morbidities. Encouraged to limit sodium intake and exercise for weight control. Continue Bystolic Assessment & Plan (03/11/2021 5:47 PM CDT): See HPI for summary Assessment & Plan (01/28/2021 3:00 PM CDT): Second reading that is elevated. Denies strong family history of HTN Smoking has slowed down. Discussed HTN treatment options and suggest BB. Reviewed risks, benefit, alternatives, side effects and proper use. Bystolic 5mg sent to pharmacy. 01/28 -- while finishing note began to consider possilbe Serotonin Syndrome as possible reason for increased BP. Called patient at 10:45am and left a message to review again his sxs in depth and decide if treatment intervention is indicated. 12:10p on 01/28. Spoke with patient regarding Serotonin syndrome sxs. He denies agitation, tremors, diarrhea, vomiting, muscle rigidity or myoclonus type changes. Reviewed to look for these sxs and if they fleming to occur, he is to go to the ER as this can be a life threatening condition. He voices understanding. He plans to supervisor picking crew the Bystolic today and will start the medication. Encouraged him to get a cuff and call with readings or have the office to a bp check. He returns to session so will have difficulty getting into the office in the next week. He is to call with any questions or concerns. 01/28. Discussed patient with Dr. Lincoln. He agreed with close monitoring of patient and if above sxs occur, he is to go to the ER. Attention deficit disorder (ADD) without hyperac tivity 07/02/2020 Assessment & Plan (05/29/2024 10:33 AM TRAIL CONSTRUCTION WORKER): Continue to follow with Bre Hamilton nurse practitioner for management as ADD and depression symptoms Assessment & Plan (11/17/2023 9:21 AM CDT): Patient is continuing to have persistent symptoms with multiple medication regimens. Encouraged consult a psychiatrist for additional evaluation. Names provided. Will await recommendations. Continue current regimen until able to see the new psychiatrist. Assessment & Plan (08/24/2023 3:09 PM CDT): Stable with Vyvanse 30 Abilify 10 Wellbutrin XL 150 and Xanax p.r.n. Assessment & Plan (05/11/2023 6:28 PM TRAIL CONSTRUCTION WORKER): Symptoms are stabilizing with the Vyvanse 30 Abilify 10 Wellbutrin XL 150 and Xanax p.r.n.. Continue to monitor closely and continue with counseling Assessment & Plan (04/02/2023 8:36 PM CDT): Discussed current symptoms. ADD seems to be well controlled with the Vyvanse. He is having breakthrough anxiety that seems to respond nicely to Xanax but he does not want to take the Xanax all the time. Discussed benefits of increasing the Abilify verses the Wellbutrin. Decided to go from 7-1/2-10 on the Abilify and continue Wellbutrin XL 150. Continue Bystolic as blood pressure and heart rate seems to be better controlled with it. Encouraged him to take medicine as instructed and use Xanax if needed until are medicines get stabilized and then will try to taper it back down. All questions were answered. Strongly encouraged to continue with the counseling. He may call at any time for assistance Assessment & Plan (03/10/2023 2:26 PM CDT): Patient's ADD and anxiety seem to improve with the addition of the Abilify 5 mg. Still feels like there is some room for improvement so will go ahead and increase to 7.5 by taking 1-1/2 tabs. Continue with the Wellbutrin XL 150 and the Vyvanse 30. Assessment & Plan (01/30/2023 8:28 AM CDT): Patient presents today to follow-up mental health concerns. ADD has been well controlled with the Vyvanse 30. Discussion today revealed some new or symptoms that could be part of a hypomania cycling with depression. He still feeling anxiety when these events happen. They happen at least daily and scattered at different times not always related to work or home. Will continue the Bystolic 5 mg. Decrease Wellbutrin to 150 mg and start Abilify 5 mg at bedtime. He may also stop the trazodone. Monitor closely and will see if adjusting with the Abilify will help for more restful rest as well as some of this cycling from highs to lows. Follow-up in 4-6 weeks to reassess or sooner for any other problems or concerns Assessment & Plan (10/07/2022 11:31 PM CDT): Patient's anxiety ADD symptoms are well controlled with the Vyvanse 30 Wellbutrin XL 300 and trazodone HS Assessment & Plan (05/17/2022 9:10 PM TRAIL CONSTRUCTION WORKER): Stable with Vyvanse Assessment & Plan (04/22/2022 10:56 PM TRAIL CONSTRUCTION WORKER): Continue current regimen with Vyvanse and Wellbutrin Assessment & Plan (01/21/2022 1:26 AM CDT): Currently stable with the Vyvanse 30. Is in the slower part of work. Will monitor closely as the fall picks up and reassess in the middle of session to see if adjustment in medication is needed Assessment & Plan (10/14/2021 2:37 PM CDT): Stable with Vyvanse 30. Assessment & Plan (05/12/2021 10:34 PM TRAIL CONSTRUCTION WORKER): Stable with Wellbutrin 300 Lexapro 20 and Vyvanse 30 refill sent to pharmacy. May call for refills over the next 4 months Assessment & Plan (01/28/2021 11:05 AM CDT): Patient with ADD and anxiety. Is finally feeling like his sxs are well controlled with the combination of lexapro 20mg, Wellbutrin 400and buspar 10mg prn. Using Vyvanse for the ADD. Sleeping well. Very effective at work and in general feeling good. Today is the second day that his blood pressure is elevated. His only complaint is low libido/ED. This was present prior to medication was started. Assessment & Plan (12/30/2020 7:52 PM CDT): Continue LExapro 20mg Increase Wellbutrin to 200mg in AM Buspar prn Continue vyvanse Use tools to help with panic F.u 4-6 weeks reassess Assessment & Plan (11/20/2020 11:53 PM CDT): See anxiety Assessment & Plan (09/19/2020 8:44 AM CDT): Happy with the Vyvanse. Refills to pharmacy Assessment & Plan (07/25/2020 12:44 PM TRAIL CONSTRUCTION WORKER): Improvement with starting Vyvanse but still room to improve. Increase to 30mg daily. Had a panic attack this morning. Thinks related to 2 most stressful weeks of work that will end Saturday. Increase Buspar to 10mg tid Continue lexapro 20mg. Call if fever/sxs continue as may need to consider infectious cause. Assessment & Plan (07/02/2020 7:18 PM TRAIL CONSTRUCTION WORKER): Discussed treatment options. Has done great with lexapro. Not responding as well to purely anxiety and having difficulty concentrating, completing tasks. Trial Vyvanse 20mg. Reviewed risks, benefit, alternatives, side effects and proper use. F.u 3-4 weeks to reassess. Fatty liver 05/15/2020 Assessment & Plan (05/29/2024 10:33 AM TRAIL CONSTRUCTION WORKER): Continue with weight loss and avoiding alcohol and other hepatic toxic drugs Assessment & Plan (11/17/2023 9:22 AM CDT): Continue with weight loss effort. Avoid nephrotoxic drugs Assessment & Plan (08/24/2023 3:09 PM CDT): Fatty liver confirmed. Continue per hepatology Dr. Jael Ibrahim. She is encouraged complete alcohol cessation, avoid hepatotoxic drugs. Work on weight loss and diet changes. Will await further recommendations Assessment & Plan (05/11/2023 6:31 PM TRAIL CONSTRUCTION WORKER): Elevated LFTs and fatty liver. Have him recheck lasbs as he has been waiting for appointment with Dr. Root hepatology at [facility]. Will go ahead and recheck. Continue to avoid Tylenol alcohol and other hepatotoxic drugs Assessment & Plan (04/22/2022 10:58 PM TRAIL CONSTRUCTION WORKER): Diffuse hepatic steatosis. Reviewed at length the dietary changes and avoid alcohol. Continue to monitor closely Assessment & Plan (05/12/2021 10:34 PM TRAIL CONSTRUCTION WORKER): Continue diet exercise and monitoring labs Assessment & Plan (05/15/2020 9:30 AM TRAIL CONSTRUCTION WORKER): See elevated LFTs Elevated LFTs 04/06/2020 Assessment & Plan (05/29/2024 10:33 AM TRAIL CONSTRUCTION WORKER): Continue with weight loss and avoiding alcohol and other hepatic toxic drugs Assessment & Plan (08/24/2023 3:09 PM CDT): See fatty liver Assessment & Plan (05/11/2023 6:30 PM TRAIL CONSTRUCTION WORKER): Elevated LFTs and fatty liver. Have him recheck lasbs as he has been waiting for appointment with Dr. Root hepatology at [facility]. Will go ahead and recheck. Continue to avoid Tylenol alcohol and other hepatotoxic drugs Assessment & Plan (04/22/2022 10:58 PM TRAIL CONSTRUCTION WORKER): Recheck again with next visit. If still elevated may need to consider referral to certified wellness program coordinator. Ultrasound in 2019 showed hepatic steatosis. Has had a negative hepatitis panel and negative gallbladder workup. Assessment & Plan (05/15/2020 9:32 AM TRAIL CONSTRUCTION WORKER): Discussed his elevated LFTs, fatty liver, ultrasound and lab results. All questions were answered. Reviewed fatty liver diet encouraged weight loss and smoking cessation. Awaiting appointment with Dr. Kirby for further evaluation of this fatty liver and ultimate plan. Assessment & Plan (04/09/2020 3:22 PM TRAIL CONSTRUCTION WORKER): This is a significant, separately identifiable problem that was evaluated and managed on the same day as the wellness exam Pt states he doesn't drink much alcohol. Avoid Tylenol. Check Hepatitis panel and liver US/GB US to determine further workup/plan RUQ pain 04/06/2020 Assessment & Plan (04/09/2020 3:18 PM TRAIL CONSTRUCTION WORKER): This is a significant, separately identifiable problem that was evaluated and managed on the same day as the wellness exam Check Abdominal US due to increased pain sxs and elevated LFTs. Reviewed GB diet. Chronic low back pain without sciatica 0 Assessment & Plan (04/09/2020 3:15 PM TRAIL CONSTRUCTION WORKER): improved Assessment & Plan (02/27/2020 11:05 PM CDT): Encouraged NSAIDS (if able to safely tolerate) or Tylenol. Topical preparations like Lidocaine patches, Biofreeze, ICYHOT etc as needed. Heat, stretching Avoid long periods of sitting/laying. Encouraged PT. Followup if has any problems controlling bowels or bladder or if sxs worsen. Anxiety 02/27/2020 Assessment & Plan (05/29/2024 10:32 AM TRAIL CONSTRUCTION WORKER): Continue to follow with Bre Hamilton nurse practitioner for management as ADD and depression symptoms Assessment & Plan (11/17/2023 9:22 AM CDT): Patient is continuing to have persistent symptoms with multiple medication regimens. Encouraged consult a psychiatrist for additional evaluation. Names provided. Will await recommendations. Continue current regimen until able to see the new psychiatrist. Assessment & Plan (08/24/2023 3:09 PM CDT): Stable with Vyvanse 30 Abilify 10 Wellbutrin XL 150 and Xanax p.r.n. Assessment & Plan (04/02/2023 8:36 PM CDT): Discussed current symptoms. ADD seems to be well controlled with the Vyvanse. He is having breakthrough anxiety that seems to respond nicely to Xanax but he does not want to take the Xanax all the time. Discussed benefits of increasing the Abilify verses the Wellbutrin. Decided to go from 7-/2-10 on the Abilify and continue Wellbutrin XL 150. Continue Bystolic as blood pressure and heart rate seems to be better controlled with it. Encouraged him to take medicine as instructed and use Xanax if needed until are medicines get stabilized and then will try to taper it back down. All questions were answered. Strongly encouraged to continue with the counseling. He may call at any time for assistance Assessment & Plan (03/10/2023 2:26 PM CDT): Patient's ADD and anxiety seem to improve with the addition of the Abilify 5 mg. Still feels like there is some room for improvement so will go ahead and increase to 7.5 by taking 1-1/2 tabs. Continue with the Wellbutrin XL 150 and the Vyvanse 30. Assessment & Plan (01/30/2023 8:28 AM CDT): Patient presents today to follow-up mental health concerns. ADD has been well controlled with the Vyvanse 30. Discussion today revealed some new or symptoms that could be part of a hypomania cycling with depression. He still feeling anxiety when these events happen. They happen at least daily and scattered at different times not always related to work or home. Will continue the Bystolic 5 mg. Decrease Wellbutrin to 150 mg and start Abilify 5 mg at bedtime. He may also stop the trazodone. Monitor closely and will see if adjusting with the Abilify will help for more restful rest as well as some of this cycling from highs to lows. Follow-up in 4-6 weeks to reassess or sooner for any other problems or concerns Assessment & Plan (10/07/2022 11:31 PM CDT): Patient's anxiety ADD symptoms are well controlled with the Vyvanse 30 Wellbutrin XL 300 and trazodone HS Assessment & Plan (05/17/2022 9:10 PM TRAIL CONSTRUCTION WORKER): Stable with Vyvanse Wellbutrin Bystolic Assessment & Plan (04/22/2022 10:56 PM TRAIL CONSTRUCTION WORKER): Continue current regimen with Vyvanse and Wellbutrin Assessment & Plan (10/14/2021 2:37 PM CDT): Continue Wellbutrin 300. Symptoms are better controlled. Assessment & Plan (05/12/2021 10:34 PM TRAIL CONSTRUCTION WORKER): Stable with Lexapro Vyvanse and Wellbutrin Assessment & Plan (01/28/2021 11:05 AM CDT): See ADD Assessment & Plan (12/30/2020 7:52 PM CDT): Continue LExapro 20mg Increase Wellbutrin to 200mg in AM Buspar prn Continue vyvanse Use tools to help with panic F.u 4-6 weeks reassess Assessment & Plan (11/20/2020 11:54 PM CDT): Continue Vyvanse 30, Lexapro 20 mg BuSpar 1 tablet up to t.i.d. and start Wellbutrin 150 mg. No history of seizures. Take 1st thing in the morning. Will continue monitor closely and see if this helps with his symptoms to give him a little bit more energy especially in the morning to get going. Reviewed risks, benefit, alternatives, side effects and proper use. Assessment & Plan (09/19/2020 8:45 AM CDT): Has been noting weird dreams that will at times wake him up in a panic. May be related to starting Benadryl hs for increased allergy sxs. Hold the benadryl. Use claritin and Flonase during the day. Continue Lexapro and Buspar Monitor. Assessment & Plan (07/25/2020 12:44 PM TRAIL CONSTRUCTION WORKER): See ADD Assessment & Plan (07/02/2020 7:14 PM TRAIL CONSTRUCTION WORKER): Continue lexapro. Prn buspar. Start Vyvanse for probable ADD Assessment & Plan (05/15/2020 9:32 AM TRAIL CONSTRUCTION WORKER): Discussed his anxiety symptoms at length. Responded to Lexapro but still having some breakthrough symptoms and is not in the heart of the anxious part of his job. Discussed anxiety versus ADD and the options of trying antianxyltic verses an ADD medication. Reviewed benefits risks alternatives and proper use. Will start with BuSpar 7.5 mg t.i.d. and have him follow-up in 4-6 weeks. 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 Assessment & Plan (04/09/2020 3:17 PM TRAIL CONSTRUCTION WORKER): This is a significant, separately identifiable problem that was evaluated and managed on the same day as the wellness exam Increase the lexapro to 20mg and reassess in 6-8 weeks Assessment & Plan (02/27/2020 11:13 PM CDT): Discussed treatment options including counseling, healthy lifestyle and medication. Encouraged counseling and provided contact information of counselors in the area. Discussed medication options. Start Lexapro. Reviewed risks, benefit, alternatives, side effects and proper use. F.u 4-6 weeks to reassess. Resolved Problems Problem Noted Date Diagnosed Date Resolved Date BMI 32.0-32.9,adult 08/24/2023 11/06/19 Assessment & Plan (08/24/2023 3:10 PM CDT): Discussed the patient's BMI. The BMI is above average. BMI management plan is completed. BMI Follow-up includes: nutrition counseling, exercise counseling and education provided. Obesity (BMI 30.0-34.9) 08/24/202305/03 Assessment & Plan (02/27/2024 8:14 AM CDT): BMI Follow-up includes: Discussed diet and exercising counseling. Assessment & Plan (11/17/2023 9:22 AM CDT): Weight/BMI is in healthy range. Continue healthy lifestyle to maintain. Assessment & Plan (08/24/2023 3:10 PM CDT): Discussed the patient's BMI. The BMI is above average. BMI management plan is completed. BMI Follow-up includes: nutrition counseling, exercise counseling and education provided. Obesity (BMI 30-39.9) 02/28/20232023 Assessment & Plan (05/01/2023 9:48 AM TRAIL CONSTRUCTION WORKER): Discussed the patient's BMI. The BMI is above average. BMI management plan is completed. BMI Follow-up includes: nutrition counseling, exercise counseling and education provided. Assessment & Plan (04/02/2023 9:42 AM CDT): BMI Follow-up includes: Discussed diet and exercising counseling. Assessment & Plan (02/28/2023 1:10 PM CDT): Discussed the patient's BMI. The BMI is above average. BMI management plan is completed. BMI Follow-up includes: nutrition counseling, exercise counseling and education provided. BMI 31.0-31.9,adult 02/28/2023 08/24/19 Assessment & Plan (05/01/2023 9:47 AM TRAIL CONSTRUCTION WORKER): Discussed the patient's BMI. The BMI is above average. BMI management plan is completed. BMI Follow-up includes: nutrition counseling, exercise counseling and education provided. Assessment & Plan (04/02/2023 9:42 AM CDT): BMI Follow-up includes: Discussed diet and exercising counseling. Assessment & Plan (02/28/2023 1:10 PM CDT): Discussed the patient's BMI. The BMI is above average. BMI management plan is completed. BMI Follow-up includes: nutrition counseling, exercise counseling and education provided. BMI 31.0-31.9,adult 10/07/2022 02/29/20 Assessment & Plan (01/29/2023 7:50 AM CDT): BMI Follow-up includes: Discussed diet and exercising counseling. Assessment & Plan (10/07/2022 11:31 PM CDT): Discussed the patient's BMI. The BMI is above average. BMI management plan is completed. BMI Follow-up includes: nutrition counseling, exercise counseling and education provided. Obesity (BMI 30-39.9) 05/17/20222022 Assessment & Plan (01/29/2023 7:50 AM CDT): BMI Follow-up includes: Discussed diet and exercising counseling. Assessment & Plan (10/07/2022 11:32 PM CDT): Discussed the patient's BMI. The BMI is above average. BMI management plan is completed. BMI Follow-up includes: nutrition counseling, exercise counseling and education provided. Assessment & Plan (05/17/2022 1:35 PM TRAIL CONSTRUCTION WORKER): Obesity is unchanged. Discussed the patient's BMI. The BMI is above average. BMI management plan is completed. BMI Follow-up includes: nutrition counseling, exercise counseling and education provided. BMI 32.0-32.9,adult 05/17/2022 09/29/19 Assessment & Plan (05/17/2022 1:35 PM TRAIL CONSTRUCTION WORKER): Obesity is unchanged. Discussed the patient's BMI. The BMI is above average. BMI management plan is completed. BMI Follow-up includes: nutrition counseling, exercise counseling and education provided. Annual physical exam 05/17/2022 024 Assessment & Plan (08/24/2023 3:09 PM CDT): Encouraged healthy lifestyle, good nutrition and exercise. Encouraged Calcium and Vitamin D and weight bearing exercise for bone health. Reviewed immunizations Reviewed age appropirate screenings. Assessment & Plan (05/17/2022 9:11 PM TRAIL CONSTRUCTION WORKER): Encouraged healthy lifestyle, good nutrition and exercise. Encouraged Calcium and Vitamin D and weight bearing exercise for bone health. Reviewed immunizations Reviewed age appropirate screenings. Diabetes mellitus screening 05/17/2022 08/24/2023 Assessment & Plan (05/11/2023 6:29 PM TRAIL CONSTRUCTION WORKER): Check labs Assessment & Plan (05/17/2022 9:11 PM TRAIL CONSTRUCTION WORKER): Check labs Right lateral epicondylitis 10/14/2021 08/24/2023 Assessment & Plan (01/21/2022 1:28 AM CDT): Resolved Assessment & Plan (10/14/2021 2:41 PM CDT): Patient has symptoms consistent with right lateral epicondylitis. It may be positioning with his mouse but regardless encourage patient to obtain a form splint. He also has not tried anti-inflammatories or icing to the area. If symptoms persist he is call for further evaluation Obesity (BMI 30-39.9) 09/29/20212021 Assessment & Plan (04/22/2022 10:57 PM TRAIL CONSTRUCTION WORKER): Discussed the patient's BMI. The BMI is above average. BMI management plan is completed. BMI Follow-up includes: nutrition counseling, exercise counseling and education provided. Assessment & Plan (01/21/2022 1:27 AM CDT): Discussed the patient's BMI. The BMI is above average. BMI management plan is completed. BMI Follow-up includes: nutrition counseling, exercise counseling and education provided. Assessment & Plan (09/29/2021 10:15 AM CDT): Obesity is unchanged. Discussed the patient's BMI. The BMI is above average. BMI management plan is completed. BMI Follow-up includes: nutrition counseling, exercise counseling and education provided. BMI 31.0-31.9,adult 09/29/2021 05/17/20 Assessment & Plan (04/22/2022 10:57 PM TRAIL CONSTRUCTION WORKER): Discussed the patient's BMI. The BMI is above average. BMI management plan is completed. BMI Follow-up includes: nutrition counseling, exercise counseling and education provided. Assessment & Plan (01/21/2022 1:27 AM CDT): Discussed the patient's BMI. The BMI is above average. BMI management plan is completed. BMI Follow-up includes: nutrition counseling, exercise counseling and education provided. Assessment & Plan (09/29/2021 10:15 AM CDT): Obesity is unchanged. Discussed the patient's BMI. The BMI is above average. BMI management plan is completed. BMI Follow-up includes: nutrition counseling, exercise counseling and education provided. Obesity (BMI 30-39.9) 05/12/20212021 Assessment & Plan (05/12/2021 9:19 AM TRAIL CONSTRUCTION WORKER): Obesity is unchanged. Discussed the patient's BMI. The BMI is above average. BMI management plan is completed. BMI Follow-up includes: nutrition counseling, exercise counseling and education provided. BMI 31.0-31.9,adult 05/12/2021 09/30/19 Assessment & Plan (05/12/2021 9:19 AM TRAIL CONSTRUCTION WORKER): Obesity is unchanged. Discussed the patient's BMI. The BMI is above average. BMI management plan is completed. BMI Follow-up includes: nutrition counseling, exercise counseling and education provided. Annual physical exam 05/12/2021 022 Assessment & Plan (05/12/2021 10:36 PM TRAIL CONSTRUCTION WORKER): Encouraged healthy lifestyle, good nutrition and exercise. Encouraged Calcium and Vitamin D and weight bearing exercise for bone health. Reviewed immunizations Reviewed age appropirate screenings. BMI 29.0-29.9,adult 01/27/2021 05/12/20 Assessment & Plan (01/27/2021 11:23 AM CDT): Weight/BMI is in healthy range. Continue healthy lifestyle to maintain. Obesity (BMI 30-39.9) 12/30/20202020 Assessment & Plan (12/30/2020 11:10 AM CDT): Obesity is unchanged. Discussed the patient's BMI. The BMI is above average. BMI management plan is completed. BMI Follow-up includes: nutrition counseling, exercise counseling and education provided. BMI 30.0-30.9,adult 12/30/2020 01/28/20 21 Assessment & Plan (12/30/2020 11:10 AM CDT): Obesity is unchanged. Discussed the patient's BMI. The BMI is above average. BMI management plan is completed. BMI Follow-up includes: nutrition counseling, exercise counseling and education provided. BMI 30.0-30.9,adult 07/01/2020 12/31/19 21 Assessment & Plan (07/01/2020 8:10 AM TRAIL CONSTRUCTION WORKER): Obesity is unchanged. Discussed the patient's BMI. The BMI is above average. BMI management plan is completed. BMI Follow-up includes: nutrition counseling, exercise counseling and education provided. Obesity (BMI 30-39.9) 07/01/20202023 Assessment & Plan (07/01/2020 8:10 AM TRAIL CONSTRUCTION WORKER): Obesity is unchanged. Discussed the patient's BMI. The BMI is above average. BMI management plan is completed. BMI Follow-up includes: nutrition counseling, exercise counseling and education provided. BMI 30.0-30.9,adult 05/06/2020 05/13/20 24 Assessment & Plan (02/27/2024 8:14 AM CDT): BMI Follow-up includes: Discussed diet and exercising counseling. Assessment & Plan (11/17/2023 9:22 AM CDT): Weight/BMI is in healthy range. Continue healthy lifestyle to maintain. Assessment & Plan (05/06/2020 9:29 AM TRAIL CONSTRUCTION WORKER): Obesity is unchanged. Discussed the patient's BMI. The BMI is above average. BMI management plan is completed. BMI Follow-up includes: nutrition counseling, exercise counseling and education provided. Flu vaccine need 04/06/2020 05/15/2020 Assessment & Plan (04/09/2020 3:18 PM TRAIL CONSTRUCTION WORKER): Updated in office today Screening examination for ST D (sexually transmitted disease) 04/06/2020 05/15/2020 Assessment & Plan (04/09/2020 3:20 PM TRAIL CONSTRUCTION WORKER): Check labs Annual physical exam 04/04/2020 020 Assessment & Plan (04/09/2020 3:18 PM TRAIL CONSTRUCTION WORKER): Encouraged healthy lifestyle, good nutrition and exercise. Encouraged Calcium and Vitamin D and weight bearing exercise for bone health. Reviewed immunizations Reviewed age appropirate screenings. Lipid screening 02/27/2020 05/15/2020 Assessment & Plan (02/27/2020 11:05 PM CDT): Check labs Diabetes mellitus screening 02/27/2020 05/15/2020 Assessment & Plan (02/27/2020 11:05 PM CDT): Check labs Other fatigue 02/27/2020 10/14/2021 Assessment & Plan (02/27/2020 11:05 PM CDT): Probably multifactorial. Check labs and followup to re-evaluate Need for Tdap vaccination 02/27/2020 Assessment & Plan (02/27/2020 11:05 PM CDT): Updated in office today BMI 29.0-29.9,adult 02/22/2020 11/22/19 25 Assessment & Plan (05/13/2024 7:51 AM TRAIL CONSTRUCTION WORKER): Weight/BMI is in healthy range. Continue healthy lifestyle to maintain. Assessment & Plan (04/09/2020 3:16 PM TRAIL CONSTRUCTION WORKER): Obesity is unchanged. Discussed the patient's BMI. The BMI is above average. BMI management plan is completed. BMI Follow-up includes: nutrition counseling, exercise counseling and education provided. Assessment & Plan (02/22/2020 2:29 PM CDT): Obesity is unchanged. Discussed the patient's BMI. The BMI is above average. BMI management plan is completed. BMI Follow-up includes: nutrition counseling, exercise counseling and education provided. History of tobacco abuse 02/22/202003/2021 Overview (01/28/2021): Quit 2020 Assessment & Plan (12/30/2020 7:52 PM CDT): Encouraged smoking cessation. Discussed 3 minutes. Reviewed options for assistance with cessation. Reviewed terminal system operator sequela associated with smoking. Pt declines assistance at this time but may contact the office at anytime for further help as they desire. Assessment & Plan (11/20/2020 11:53 PM CDT): Encouraged smoking cessation. Discussed 3 minutes. Reviewed options for assistance with cessation. Reviewed terminal system operator sequela associated with smoking. Starting Wellbutrin for stress but reviewed with patient this may also help with smoking cessation. Assessment & Plan (09/19/2020 8:44 AM CDT): Encouraged smoking cessation. Discussed 3 minutes. Reviewed options for assistance with cessation. Reviewed half-way sequela associated with smoking. Pt declines assistance at this time but may contact the office at anytime for further help as they desire. Assessment & Plan (07/02/2020 7:13 PM TRAIL CONSTRUCTION WORKER): Encouraged smoking cessation. Discussed 3 minutes. Reviewed options for assistance with cessation. Reviewed terminal system operator sequela associated with smoking. Pt declines assistance at this time but may contact the office at anytime for further help as they desire. Assessment & Plan (05/15/2020 9:32 AM TRAIL CONSTRUCTION WORKER): Encouraged smoking cessation. Discussed 3 minutes. Reviewed options for assistance with cessation. Reviewed half-way sequela associated with smoking. Pt declines assistance at this time but may contact the office at anytime for further help as they desire. Assessment & Plan (04/09/2020 3:16 PM TRAIL CONSTRUCTION WORKER): Encouraged smoking cessation. Discussed 3 minutes. Reviewed options for assistance with cessation. Reviewed terminal system operator sequela associated with smoking. Pt declines assistance at this time but may contact the office at anytime for further help as they desire. Assessment & Plan (02/27/2020 11:05 PM CDT): Encouraged smoking cessation. Discussed 3 minutes. Reviewed options for assistance with cessation. Reviewed terminal system operator sequela associated with smoking. Pt declines assistance at this time but may contact the office at anytime for further help as they desire. Will start lexapro to see if helps with the stress and discuss again at her next visit to see if can assist further with cessation. Encounters Date Type Department Care Team Description 04/05/2025 Nurse Triage [address] [place] [phone] Gracia Lopez PA 04/02/2025 Results Follow-Up [address] [place] [phone] Gracia Lopez PA POCT urinalysis dipstick, CBC with auto differential, Comprehensive metabolic panel, Additional followed-up results: 3 04/01/2025 10:00 AM CDT Office Visit [address] [place] [phone] Gracia Lopez PA Nausea and vomiting in adult (Primary Dx) 03/30/[address] [place] [phone] Gracia Lopez PA 02/03/2025 9:30 AM CDT Office Visit [facility] [address] [phone] Selwyn Jones MD Snoring (Primary Dx) from Last 3 Months Immunizations Immunization Administration Dates Next Due DTP 12/15/1994, 2,03/06/1991,01/09,1990 DTaP 03/07/1992, 1,01/09/1991,11/04 Hep B Vaccine 05/21/2002,12/17/2001,11/17/2001 HiB 12/07/1991, 1,01/09/1991,11/04 Hib (PRP-T) 12/07/1991, 1,01/09/1991,11/04 IPV 12/15/1994, 2,01/09/1991,11/04 Influenza, Quadrivalent, Melani l Culture-based MDCK, Preservative Free, Antibiotic Free, Intramuscular 04/07/2021 Influenza, Quadrivalent, Spl it, Preservative Free, Intramuscular 04/05/2020 Influenza, Unspecified 02/27/2024(Deferr ed: Patient Refused),02/27/2024(Deferred: Patient Refused),04/02/2023(Deferred: Patient Refused),04/04/2022(Deferred: Patient Refused),03/04/2022(Deferred: Patient Refused),05/12/2021 MMR 12/15/1994,12/07/1991 Meningococcal MCV4P (Menactra) 11/14/2009 OPV 12/15/1994, 2,01/09/1991,11/04 Td, adsorbed 12/26/2005 Tdap 02/22/2020 Varicella 11/14/2009,09/11/1995 Medical History Medical History Date Comments Hypertension Hyperlipidemia Anxiety ADHD (attention deficit hyperactivity disorder) Family History Medical History Relation Name Comments No Known Problems Father Breast cancer Mother Relation Name Status Comments Father Alive Mother Alive Social History Tobacco Use Types Packs/Day Years Used Date Smoking Tobacco: Former Cigarettes 0.3 15 1 07/04/2005 - 05/03/2021 Smokeless Tobacco: Never Tobacco Cessation:Counseling Given: Not Answered Alcohol Use Standard Drinks/Week Comments Yes 1 [...] Industry Job Start Date Job End Date [employer] Not on file Not on file Not on file Last Filed Vital Signs Vital Sign Reading Time Taken Comments Blood Pressure 150/120 04/01/2025 9:59 AM CDT has not taken meds yet Pulse 107 04/01/2025 9:59 AM CDT Temperature 36.7 C (98 F) 04/01/2025 9:59 AM CDT Respiratory Rate 18 02/03/2025 9:23 AM CDT Oxygen Saturation 97% 04/01/2025 9:5 9 AM CDT Inhaled Oxygen Concentration - - Weight 94.3 kg (208 lb) 02/03/2025 9:23 AM CDT Height 180.3 cm (5' 11) 04/01/2025 9:5 9 AM CDT Body Mass Index 29.01 02/03/2025 9:23 AM CDT Plan of Treatment Health Maintenance Due Date Last Done Comments Pneumococcal vaccine <65 (1 of 2 - PCV) 2009 HPV Vaccines (1 - 3-dose SCD M series) 2017 Covid-19 Vaccine (3 - 2024-2 6 season) 2025 04/07/2021, 08/10/2020 Influenza Vaccine (#1) 2025 , 04/07/2021, 04/05/2020 Regular Well Visit/Exam 18-64 11/09/2025, 08/02/2023, 05/17/2022, Additional history exists Depression Screening 04/01/2026 04/01/2025, 11/09/2024, 05/13/2024, Additional history exists DTaP/Tdap/Td Vaccine (7 - Td or Tdap) 02/21/2030 02/22/2020, 12/26/2005, 12/15/1994, Additional history exists Varicella Vaccines Completed 11/14/2009, 09/11/1995 Hepatitis C Screening Completed 04/19/2020 Procedures Procedure Name Priority Date/Time Associated Diagnosis Comments LIPASE Routine 04/01/2025 11:45 AM CDT TSH Routine 04/01/2025 11:45 AM CDT Nausea and vomiting in adult MAGNESIUM Routine 04/01/2025 11:45 AM CDT Nausea and vomiting in adult COMPREHENSIVE METABOLIC PANEL Routine 04/01/2025 11:45 AM CDT Nausea and vomiting in adult CBC WITH AUTO DIFFERENTIAL Routine 04/01/2025 11:45 AM CDT Nausea and vomiting in adult POCT URINALYSIS DIPSTICK Routine 04/01/2025 11:14 AM CDT Nausea and vomiting in adult HEPATITIS PANEL, ACUTE Routine 1:19 PM TRAIL CONSTRUCTION WORKER from Last 3 Months or Most Recently Relevant to Health Maintenance Results * (ABNORMAL) CBC with auto differential (04/01/2025 11:45 AM CDT) WBC 12.9(H) 3.8 - 10.8 Thousand/u L [facility] RBC, POC 5.95(H) 4.20 - 5.80 Million/uL [facility] Hgb 16.9 13.2 - 17.1 g/dL [facility] Hct 52.4(H) 38.5 - 50.0 % [facility] MCV 88.1 80.0 - 100.0 fL [facility] MCH 28.4 27.0 - 33.0 pg [facility] MCHC 32.3 32.0 - 36.0 g/dL [facility] Comment: For adults, a slight decrease in the calculated MCHC value (in the range of 30 to 32 g/dL) is most likely not clinically significant; however, it should be interpreted with caution in correlation with other red cell parameters and the patient's clinical condition. Rdw 13.2 11.0 - 15.0 % [facility] Platelets 343 140 - 400 Thousand/u L [facility] MPV 10.8 7.5 - 12.5 fL [facility] Neutrophils, abs 9,082(H) 1,500 - 7,800 cells/uL [facility] Lymphocytes, abs 2,464 850 - 3,900 cells/uL [facility] Monocyte abs 1,251(H) 200 - 950 cells/uL [facility] Eosinophils, abs 39 15 - 500 cells/uL [facility] Basophils, abs 65 0 - 200 cells/uL [facility] Neutrophils 70.4 % [facility] Lymphocyte pct 19.1 % [facility] Monocytes 9.7 % [facility] Eosinophils 0.3 % [facility] Basophils 0.5 % [facility] Blood 04/01/2025 11:4 5 AM CDT 04/01/2025 11:46 AM CDT Gracia SARABIA LAB BLOOD ORDERABLES Final Result Performing Organization Address [facility] de Phone Number [facility] [address] [place] [phone] * TSH (04/01/2025 11:45 AM CDT) TSH 0.70 0.40 - 4.50 mIU/L [facility] Blood 04/01/2025 11:4 5 AM CDT 04/01/2025 11:46 AM CDT Gracia SARABIA LAB BLOOD ORDERABLES Final Result Performing Organization Address [facility] de Phone Number [facility] [employer] [facility] [address] [place] [phone] * Magnesium (04/01/2025 11:45 AM CDT) Magnesium 2.3 1.5 - 2.5 mg/dL [facility] Blood 04/01/2025 11:4 5 AM CDT 04/01/2025 11:46 AM CDT Gracia SARABIA LAB BLOOD ORDERABLES Final Result Performing Organization Address City/[facility]/ZIP Co de Phone Number [facility] [address] [place] [address] * Lipase (04/01/2025 11:45 AM CDT) Pathologist [facility] LIPASE 30 7 - 60 U/L [facility] 04/01/2025 11:4 5 AM CDT 04/01/2025 11:46 AM CDT Gracia SARABIA LAB BLOOD ORDERABLES Final Result Performing Organization Address [facility] Co de Phone Number [facility] [employer] [facility] [address] [place] [address] * (ABNORMAL) Comprehensive metabolic panel (04/01/2025 11:45 AM CDT) [facility] Glucose 76 65 - 99 mg/dL [facility] Comment: Fasting reference interval BUN 16 7 - 25 mg/dL [facility] Creatinine 1.09 0.60 - 1.26 mg/dL [facility] eGFR 91 > OR = 60 mL/min/1.7 3m2 [facility] BUN/creat ratio SEE NOTE: 6 - 22 (calc) [facility] [facility] Comment: Not Reported: BUN and Creatinine are within reference range. Sodium 133(L) 135 - 146 mmol/L [facility] Potassium, pl 3.6 3.5 - 5.3 mmol/L [facility] Chloride 86(L) 98 - 110 mmol/L [facility] CO2 32 20 - 32 mmol/L [facility] Calcium 10.2 8.6 - 10.3 mg/dL [facility] Protein, sr 7.8 6.1 - 8.1 g/dL [facility] Albumin 5.3(H) 3.6 - 5.1 g/dL [facility] GLOBULIN 2.5 1.9 - 3.7 g/dL (calc) [facility] Alb/glob ratio 2.1 1.0 - 2.5 (calc) [facility] Bilirubin, total 1.1 0.2 - 1.2 mg/dL [facility] Alk phos 56 36 - 130 U/L [facility] AST 22 10 - 40 U/L [facility] ALT (SGPT) 16 9 - 46 U/L [facility] Blood 04/01/2025 11:4 5 AM CDT 04/01/2025 11:46 AM CDT Gracia SARABIA LAB BLOOD ORDERABLES Final Result [facility] Center[facility] [address] [place] [address] * (ABNORMAL) POCT urinalysis dipstick (04/01/2025 11:14 AM CDT) Glucose, ur, POC Negative Negative Bilirubin, ur, POC Moderate(A) Negative Ketones, ur, POC 40.(A) Negative Specific [place], POC 1.030 1.003 - 1.030 Blood, ur, POC Negative Negative pH, ur, POC 6.0 5.0 - 8.0 Protein, ur, POC Trace(A) Negative Urobilinogen, urine, POC 0.2 0.2 - 1.0 mg/dL Nitrite, ur, POC Negative Negative Leukocytes, ur, POC Negative Negative Lot Number [id number] Urine 04/01/2025 11:1 4 AM CDT Gracia SARABIA POINT OF CARE TEST ORDERAB LES Edited Result - Final * Hepatitis panel, acute (04/19/2020 1:19 PM TRAIL CONSTRUCTION WORKER) Hep A IgM NON-REACTI VE NON-REACT TEDDY [facility] Comment: For additional information, please refer to http://education.[facility].Travee/faq/NYK912 (This link is being provided for informational/ educational purposes only.) HepBsAg NON-REACTI VE NON-REACT TEDDY [facility] Hep B core IgM NON-REACTI VE NON-REACT TEDDY [facility] Hep C Ab NON-REACTI VE NON-REACT TEDDY [facility] SIGNAL TO CUT-OFF 0.01 <1.00 [facility] Comment: HCV antibody was non-reactive. There is no laboratory evidence of HCV infection. In most cases, no further action is required. However, if recent HCV exposure is suspected, a test for HCV RNA (test code 95892) is suggested. 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
--- OUTSIDE RECORDS SUMMARY | 2025-04-05 10:39 | XMS_ITS | Encounter Summary ---
Author Organization [facility] Healthcare Address [address] [place] [address] Care Team Providers Care Finance Admin Name Role Phone Gracia Lopez Primary Care Provider [phone]- [phone] Encounter Details Date Type Department Care Team (Latest Contact Info) Description 04/02/2025 Results Follow-Up [facility] Family Medicine [address] [place] [address] Gracia Lopez PA 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 Today he has had chicken broth,applesauce, and a banana no pain or discomfort. He states that he will continue to take it easy and follow the BRAT diet today. He feels ok. * Telephone Encounter - Annabelle Kincaid MA - 04/02/2025 11:18 AM CDT ----- Message from CORNELL Cortez sent at 04/02/2025 9:19 AM CDT ----- Let patient know his labs are showing a slightly elevated white blood cell count (probably due to the GI symptoms). His sodium level is just below normal. Potassium is normal so the electrolytes are stable enough Liver enzymes are good. How did he do overnight with the sipping of fluids and BRAT diet?? He can also do a little electrolyte replacement with Gatorade to help lift the sodium level. ----- Message ----- From: Annabelle Kincaid MA Sent: 04/01/2025 11:14 AM CDT To: CORNELL Bergman documented in this encounter Plan of Treatment Not on file documented as of this encounter Visit Diagnoses Not on filedocumented in this encounter Care Teams Finance Admin Relationship Specialty Start Date End Date Gracia Lopez PA [address] [address] PCP - General Internal Medicine 12/23/19 documented as of this encounter
--- OUTSIDE RECORDS SUMMARY | 2025-04-05 10:39 | XMS_ITS | Patient Health Record ---
Author Organization [facility] Address [address] [place], [place] [address] Care Team Providers Care Feller Operator Name Role Phone Luci Lai Primary Care Provider Migration, Provider Unavailable Unavailable Allergies Allergen (clinical drug ingredient) Drug/Non Drug Allergy documented on EMR Reaction Allergy Type Onset Date Status cefaclor Cefaclor Unknown Drug Allergy Active Results Component Value Reference Range Flag Notes Full Confirmation - Specimen Type Urine Reviewed [...] ng/mL ng/mL Trazodone Negative 50 ng/mL ng/mL Presumptive Drug Test - Spec imen Type [...] ng/ml Tricyclic Antidepressants Screen Negative 150 ng/mL ng/ml Buprenorphine Screen Negative 75 ng/mL ng/ml Cannabis Screen Positive 150 ng/mL ng/ml H CORTISOL, TOTAL Reviewed date:04/19/2024 03:46:44 PM Interpretation: Performing Lab:J[facility], [address], [place], [address] Pedro Bartno MD Notes/Report: Reference Range: For 8 a.m.(7-9 a.m.) Specimen: 4.0-22.0 Reference Range: For 4 p.m.(3-5 p.m.) Specimen: 3.0-17.0 * Please interpret above results accordingly * CORTISOL, TOTAL 2.1 L DEXAMETHASONE Reviewed date:04/26/2024 07:56:19 PM Interpretation: Performing Lab:OSVALDO [facility],, [address] [place], [address] Gia Antonio MD,PhD,DA Notes/Report: Reference Ranges for Dexamethasone: Baseline: Less than 20 ng/dL 1 mg dexamethasone overnight: 180-550 ng/dL (8:00-10:00 AM) This test was developed and its analytical performance characteristics have been determined by [facility]. It has not been cleared or approved by FDA. This assay has been validated pursuant to the CLIA regulations and is used for clinical purposes. DEXAMETHASONE 263 TESTOSTERONE, FREE (DIALYSIS ) AND TOTAL,MS Reviewed date:05/01/2024 11:35:56 AM Interpretation: Performing Lab:[facility], [facility] [employer] [facility] [address], [address], [place], [address] Ramonita Fish MD,PhD Notes/Report: (Note) FASTING:YES For additional information, please refer to This test was developed and its analytical performance https://education.Colectica.TheraTorr Medical/faq/FOG154 characteristics have been determined by [facility]. It has FASTING: YES (This link is being provided for informational/educational purposes only.) not been cleared or approved by the FDA. This assay has (Note) been validated pursuant to the CLIA regulations and is used for clinical purposes. This test was developed and its analytical performance characteristics have been determined by [employer] [facility]. It has MDF not been cleared or approved by the FDA. This assay has med fusion been validated pursuant to the CLIA regulations and is [address] [address],[address] used for clinical purposes. [facility] [address] Ramonita Fish MD, PhD TESTOSTERONE, TOTAL, MS [address] ng/dL TESTOSTERONE, FREE 103.6 35.0-155.0 pg/mL TSH Reviewed date:04/23/2024 09:28:24 PM Interpretation: Performing Lab:[facility], [address] [place], [address] Pedro Barton Notes/Report: FASTING:YES FASTING: YES TSH 1.62 0.40-4.50 mIU/L N T4, FREE Reviewed date:04/23/2024 09:28:06 PM Interpretation: Performing Lab:[facility], [address] [place], [address] EdenAleena Barton Notes/Report: FASTING:YES FASTING: YES T4, FREE 1.3 0.8-1.8 ng/dL N IRON AND TOTAL IRON BINDING CAPACITY Reviewed date:04/24/2024 08:41:43 PM Interpretation: Performing Lab:Jackie HINTON, [address] [place], [address] Pedro Barton MD Notes/Report: FASTING:YES FASTING: YES IRON, TOTAL 83 50-180 mcg/dL N IRON BINDING CAPACITY 395 250-425 mc g/dL (calc) N % SATURATION 21 20-48 % (calc) N PROLACTIN Reviewed date:04/24/2024 08:41:05 PM Interpretation: Performing Lab:Jackie HINTON, [address] [place], [address] Pedro Barton MD Notes/Report: FASTING:YES FASTING: YES PROLACTIN 1.3 2.0-18.0 ng/mL L VITAMIN B12/FOLATE, SERUM PA SO Reviewed date:04/24/2024 08:40:51 PM Interpretation: Performing Lab:JAMAAL, [facility], [address] [place], [address] Pedro Barton MD Notes/Report: Reference Range FASTING:YES Please Note: Although the reference range for vitamin Low: <3.4 B12 is 200-1100 pg/mL, it has been reported that between Borderline: 3.4-5.4 FASTING: YES 5 and 10% of patients with values between 200 and 400 Normal: >5.4 pg/mL may experience neuropsychiatric and hematologic abnormalities due to occult B12 deficiency; less than 1% of patients with values above 400 pg/mL will have symptoms. VITAMIN B12 874 328-9142 pg/mL N FOLATE, SERUM 10.0 N CBC (INCLUDES DIFF/PLT) Reviewed date:04/23/2024 09:11:18 PM Interpretation: Performing Lab:[facility], [address], [place], [address] Pedro Barton Notes/Report: For adults, a slight decrease in the calculated MCHC FASTING:YES value (in the range of 30 to 32 g/dL) is most likely not clinically significant; however, it should be FASTING: YES interpreted with caution in correlation with other red cell parameters and the patient's clinical condition. WHITE BLOOD CELL COUNT 6.6 3.8-10.8 Thousand/uL N RED BLOOD CELL COUNT 5.55 4.20-5.80 Million/uL N HEMOGLOBIN 16.1 13.2-17.1 g/dL N HEMATOCRIT 50.5 38.5-50.0 % H MCV 91.0 80.0-100.0 fL N MCH 29.0 27.0-33.0 pg N MCHC 31.9 32.0-36.0 g/dL L RDW 12.8 11.0-15.0 % N PLATELET COUNT 270 140-400 Thousand/uL N MPV 10.7 7.5-12.5 fL N ABSOLUTE NEUTROPHILS 3828 5921-0276 cells/uL N ABSOLUTE LYMPHOCYTES 2086 850-3900 cells/uL N ABSOLUTE MONOCYTES 528 200-950 cells/uL N ABSOLUTE EOSINOPHILS 99 15-500 cells/uL N ABSOLUTE BASOPHILS 59 0-200 cells/uL N NEUTROPHILS 58 N LYMPHOCYTES 31.6 N MONOCYTES 8.0 N EOSINOPHILS 1.5 N BASOPHILS 0.9 N MAGNESIUM Reviewed date:04/24/2024 08:43:52 PM Interpretation: Performing Lab:[facility], [address] [place], [address] [facility] Notes/Report: FASTING:YES FASTING: YES MAGNESIUM 2.1 1.5-2.5 mg/dL N LH Reviewed date:04/24/2024 08:41:13 PM Interpretation: Performing Lab:Jackie HINTON, [address], [place], [address] Pedro Barton MD Notes/Report: FASTING:YES FASTING: YES LH 4.1 1.5-9.3 mIU/mL N FSH Reviewed date:04/24/2024 08:41:23 PM Interpretation: Performing Lab:Jackie HINTON, [address], [place], [address] Pedro Barton MD Notes/Report: FASTING:YES FASTING: YES FSH 4.2 1.4-12.8 mIU/mL N FERRITIN Reviewed date:04/24/2024 08:44:00 PM Interpretation: Performing Lab:Jackie HINTON, [address], [place], [address] Pedro Barton MD Notes/Report: FASTING:YES FASTING: YES FERRITIN 91 38-380 ng/mL N ESTRADIOL Reviewed date:04/24/2024 08:40:33 PM Interpretation: Performing Lab:[facility], [address] [place], [address] [facility] Notes/Report: Reference range established on post-pubertal patient FASTING:YES population. No pre-pubertal reference range established using this assay. For any patients for FASTING: YES whom low Estradiol levels are anticipated (e.g. males, pre-pubertal children and hypogonadal/post-menopausal females), the [facility] Estradiol, Ultrasensitive, LCMSMS assay is recommended (order code 08079). Please note: patients being treated with the drug fulvestrant (Faslodex(R)) have demonstrated significant interference in immunoassay methods for estradiol measurement. The cross reactivity could lead to falsely elevated estradiol test results leading to an inappropriate clinical assessment of estrogen status. [facility] order code [id number], Ultrasensitive LC/MS/MS demonstrates negligible cross reactivity with fulvestrant. ESTRADIOL 39 < OR = 39 pg/mL N DHEA SULFATE Reviewed date:04/24/2024 08:41:34 PM Interpretation: Performing Lab:Jackie HINTON, [address] [place], [address] Pedro Barton MD Notes/Report: FASTING:YES FASTING: YES DHEA SULFATE 288 93-415 mcg/dL N T3, FREE Reviewed date:04/24/2024 08:40:41 PM Interpretation: Performing Lab:JAMAAL [facility], [address] [place], [address] Pedro Barton MD Notes/Report: FASTING:YES FASTING: YES T3, FREE 3.9 2.3-4.2 pg/mL N ACTH, PLASMA Reviewed date:05/01/2024 11:36:03 AM Interpretation: Performing Lab:Jackie KIM/[facility], [address], [place], [address] Charlie Murry M.D.,PhD Notes/Report: FASTING:YES Reference range applies only to specimens collected between 7am-10am. FASTING: YES ACTH, PLASMA 20 6-50 pg/mL VITAMIN D, 25-HYDROXY, LC/MS /MS Reviewed date:04/24/2024 08:40:23 PM Interpretation: Performing Lab:JAMAAL [facility], [address] [place], [address] Pedro Barton MD Notes/Report: Vitamin D Status 25-OH Vitamin D: FASTING:YES Deficiency: <20 ng/mL FASTING: YES Insufficiency: 20 - 29 ng/mL Optimal: > or = 30 ng/mL For 25-OH Vitamin D testing on patients on D2-supplementation and patients for whom quantitation of D2 and D3 fractions is required, the [employer](TM) 25-OH VIT D, (D2,D3), LC/MS/MS is recommended: order code [id number] (patients >2yrs). See Note 1 Note 1 For additional information, please refer to http://education.Azoi/faq/QHJ344 (This link is being provided for informational/ educational purposes only.) VITAMIN D,25-OH,TOTAL,IA 48 30-100 ng/mL N COMPREHENSIVE METABOLIC PANE L Reviewed date:04/23/2024 09:10:55 PM Interpretation: Performing Lab:[facility], [address], [place], [address] ePdro Barton Notes/Report: Not Reported: BUN and Creatinine are within FASTING:YES Fasting reference interval reference range. FASTING: YES For someone without known diabetes, a glucose value between 100 and 125 mg/dL is consistent with prediabetes and should be confirmed with a follow-up test. GLUCOSE 102 65-99 mg/dL H UREA NITROGEN (BUN) 14 7-25 mg/dL N CREATININE 1.05 0.60-1.26 mg/dL N EGFR 96 > OR = 60 mL/min/1.73m2 N BUN/CREATININE RATIO SEE NOTE: 6-22 (calc) SODIUM 139 135-146 mmol/L N POTASSIUM 4.1 3.5-5.3 mmol/L N CHLORIDE 103 98-110 mmol/L N CARBON DIOXIDE 28 20-32 mmol/L N CALCIUM 10.0 8.6-10.3 mg/dL N PROTEIN, TOTAL 7.3 6.1-8.1 g/dL N ALBUMIN 4.9 3.6-5.1 g/dL N GLOBULIN 2.4 1.9-3.7 g/dL (calc) N ALBUMIN/GLOBULIN RATIO 2.0 1.0-2.5 (calc) N BILIRUBIN, TOTAL 0.5 0.2-1.2 mg/dL N ALKALINE PHOSPHATASE 68 36-130 U/L N AST 17 10-40 U/L N ALT 24 9-46 U/L N .COMPREHENSIVE METABOLIC MAYERS EL (17693) CMP Reviewed date:11/13/2024 08:31:50 AM Interpretation: Performing Lab:JAMAAL [facility]-[address], [place] Pedro Barton MD Notes/Report: FASTING:YES COLLECTION KIT GIVEN TO PATIENT. PATIENT ADVISED TO RETURN. URINE VOLUME: 1999 FASTING: YES GLUCOSE 106 65-99 mg/dL H between 100 and 125 mg/dL is consistent with Fasting reference interval follow-up test. prediabetes and should be confirmed with a For someone without known diabetes, a glucose value UREA NITROGEN (BUN) 14 7-25 mg/dL N CREATININE 0.96 0.60-1.26 mg/dL N EGFR 106 > OR = 60 mL/min/1.73m2 N BUN/CREATININE RATIO SEE NOTE: 6-22 (calc) reference range. Not Reported: BUN and Creatinine are within SODIUM 139 135-146 mmol/L N POTASSIUM 4.4 3.5-5.3 mmol/L N CHLORIDE 103 98-110 mmol/L N CARBON DIOXIDE 25 20-32 mmol/L N CALCIUM 9.9 8.6-10.3 mg/dL N PROTEIN, TOTAL 7.0 6.1-8.1 g/dL N ALBUMIN 4.9 3.6-5.1 g/dL N GLOBULIN 2.1 1.9-3.7 g/dL (calc) N ALBUMIN/GLOBULIN RATIO 2.3 1.0-2.5 (calc) N BILIRUBIN, TOTAL 0.5 0.2-1.2 mg/dL N ALKALINE PHOSPHATASE 70 36-130 U/L N AST 14 10-40 U/L N ALT 28 9-46 U/L N PTH, INTACT AND CALCIUM (883 7) Reviewed date:11/13/2024 08:32:26 AM Interpretation: Performing Lab:[place], [facility]-[address] [facility], PgospbUN[address] Pedro Barton MD Notes/Report: FASTING:YES COLLECTION KIT GIVEN TO PATIENT. PATIENT ADVISED TO RETURN. URINE VOLUME: 1999 FASTING: YES PARATHYROID HORMONE, INTACT 25 16-77 pg/mL N Non-Parathyroid Primary Normal or High High Tertiary High High Hyperparathyroidism Interpretive Guide Intact PTH Calcium Hypercalcemia Low or Low Normal High Normal Parathyroid Normal Normal Secondary High Normal or Low Hypoparathyroidism Low or Low Normal Low ------- CALCIUM 9.9 8.6-10.3 mg/dL N .LIPID PANEL, STANDARD (7600 ) Reviewed date:11/13/2024 08:32:18 AM Interpretation: Performing Lab:[facility]ON [facility] [place] [id number] ZcufryrXT[address] [facility]hemi Barton Notes/Report: FASTING:YES COLLECTION KIT GIVEN TO PATIENT. PATIENT ADVISED TO RETURN. URINE VOLUME: 1999 FASTING: YES CHOLESTEROL, TOTAL 203 <200 mg/dL H HDL CHOLESTEROL 56 > OR = 40 mg/dL N TRIGLYCERIDES 94 <150 mg/dL N LDL-CHOLESTEROL 127 H with > or = 2 CHD risk factors. Reference range: <100 (http://education.Next University/faq/FAQ16 4) <70 mg/dL for patients with CHD or diabetic patients Desirable range <100 mg/dL for primary prevention; calculation, which is a validated novel method providing estimation of LDL-C. Lebron AGUILLON et al. VICENTE. 2013;310(19): 6420-4050 better accuracy than the Friedewald equation in the LDL-C is now calculated using the Chasity CHOL/HDLC RATIO 3.6 <5.0 (calc) N NON HDL CHOLESTEROL 147 <130 mg/dL (calc) H option. factor, treating to a non-HDL-C goal of <100 mg/dL (LDL-C of <70 mg/dL) is considered a therapeutic For patients with diabetes plus 1 major ASCVD risk .CBC (INCLUDES DIFF/PLT) (63 99) Reviewed date:11/13/2024 08:31:43 AM Interpretation: Performing Lab:[facility] BmhtfvkTS[address] [facility] Rochesternohemi Holguin Notes/Report: FASTING:YES COLLECTION KIT GIVEN TO PATIENT. PATIENT ADVISED TO RETURN. URINE VOLUME: 1999 FASTING: YES WHITE BLOOD CELL COUNT 9.0 3.8-10.8 Thousand/uL N RED BLOOD CELL COUNT 5.54 4.20-5.80 Million/uL N HEMOGLOBIN 16.1 13.2-17.1 g/dL N HEMATOCRIT 50.1 38.5-50.0 % H MCV 90.4 80.0-100.0 fL N MCH 29.1 27.0-33.0 pg N MCHC 32.1 32.0-36.0 g/dL N red cell parameters and the patient's clinical condition. value (in the range of 30 to 32 g/dL) is most likely not clinically significant; however, it should be interpreted with caution in correlation with other For adults, a slight decrease in the calculated MCHC RDW 13.1 11.0-15.0 % N PLATELET COUNT 281 140-400 Thousand/uL N MPV 10.6 7.5-12.5 fL N ABSOLUTE NEUTROPHILS 6309 4259-8778 cells/uL N ABSOLUTE LYMPHOCYTES 0826 030-5702 cells/uL N ABSOLUTE MONOCYTES 594 200-950 cells/uL N ABSOLUTE EOSINOPHILS 54 15-500 cells/uL N ABSOLUTE BASOPHILS 72 0-200 cells/uL N NEUTROPHILS 70.1 N LYMPHOCYTES 21.9 N MONOCYTES 6.6 N EOSINOPHILS 0.6 N BASOPHILS 0.8 N .HEMOGLOBIN A1c (496) Reviewed date:11/13/2024 08:31:27 AM Interpretation: Performing Lab:[facility]ON [facility] [facility] HospitalLowdnqaGF[address] Pedro Barton Notes/Report: FASTING:YES COLLECTION KIT GIVEN TO PATIENT. PATIENT ADVISED TO RETURN. URINE VOLUME: 1999 FASTING: YES HEMOGLOBIN A1c 5.4 <5.7 % of total Hgb N of diabetes. > or =6.5% Consistent with diabetes diabetes: control in non- diabetic patients. Different Standards of Medical Care in Diabetes(ADA). 5.7-6.4% Consistent with increased risk for diabetes Currently, no consensus exists regarding use of For the purpose of screening for the presence of <5.7% Consistent with the absence of diabetes guidelines, hemoglobin A1c <7.0% represents optimal metrics may apply to specific patient populations. (prediabetes) This assay result is consistent with a decreased risk According to [place] Diabetes Association (ADA) hemoglobin A1c for diagnosis of diabetes in children. INSULIN (561) Reviewed date:11/13/2024 08:31:35 AM Interpretation: Performing Lab:JAMAAL [facility]-[address]WxrihyBH[address] Pedro Barton MD Notes/Report: FASTING:YES COLLECTION KIT GIVEN TO PATIENT. PATIENT ADVISED TO RETURN. URINE VOLUME: 1999 FASTING: YES INSULIN 23.7 H Adult cardiovascular event risk category are based on Insulin Reference Interval cut points (optimal, moderate, high) studies performed at [facility] Risk: High >18.4 Optimal < or = 18.4 Reference Range < or = 18.4 Moderate NA in 2021. TESTOSTERONE, FREE (DIALYSIS ) AND TOTAL,MS (50400) Reviewed date:11/16/2024 09:01:42 PM Interpretation: Performing Lab:Z3E, [facility]M[address]ox[address]yl[address] [facility] [address], [address], [place] Ramonita Fish MD,PhD Notes/Report: FASTING:YES COLLECTION KIT GIVEN TO PATIENT. PATIENT ADVISED TO RETURN. URINE VOLUME: 1999 FASTING: YES TESTOSTERONE, TOTAL, MS 285 [address]-7827 ng/dL (This link is being provided for informational/educationa l purposes only.) https://education.Vhoto/faq/FAQ16 5 not been cleared or approved by the FDA. This assay has used for clinical purposes. This test was developed and its analytical performance For additional information, please refer to been validated pursuant to the CLIA regulations and is characteristics have been determined by [facility]. It has (Note) TESTOSTERONE, FREE 105.9 35.0-155.0 pg/mL IDF [phone] Ramonita Fish MD, PhD med fusion been validated pursuant to the CLIA regulations and is (Note) used for clinical purposes. characteristics have been determined by [facility]. [place] [address] not been cleared or approved by the FDA. This assay has [address] [address],[address] This test was developed and its analytical performance ACTH, PLASMA (211) Reviewed date:01/19/2025 09:08:12 PM Interpretation: Performing Lab:Jackie KIM/[address]ette ButlerLuke [place] [facility] hospitalsammy [address], BsbekuznhGS[address] Charlie Murry M.D.,PhD Notes/Report: FASTING:NO FASTING: NO ACTH, PLASMA 51 6-50 pg/mL H Reference range applies only to specimens collected between 7am-10am. CORTISOL, LC/MS, SALIVA, 2 S AMPLES (45615) Reviewed date:12/13/2024 08:19:29 PM Interpretation: Performing Lab:OSVALDO [facility]/Nanette [facility]-Mcbain,[address] [address] [facility] SwwnebbcqsJB[address] Gia Antonio MD,PhD,DA Notes/Report: SPLIT 11/10/2024 FROM [id number] DRAW DATE 1 [id number] DRAW TIME 1 11AM CORTISOL, SALIVA SAMPLE 1 0.12 It has not been cleared or approved by the FDA. This assay has been validated pursuant to the CLIA regulations and is characteristics have been determined by [facility]. used for clinical purposes. noon-2 PM: < OR = 0.21 mcg/dL 8-10 AM: 0.04-0.56 mcg/dL 4-6 PM: < OR = 0.15 mcg/dL This test was developed and its analytical performance 10 PM-1 AM: < OR = 0.09 mcg/dL DRAW DATE 2 [id number] DRAW TIME 2 11AM CORTISOL, SALIVA SAMPLE 2 0.18 characteristics have been determined by [facility]. 4-6 PM: < OR = 0.15 mcg/dL This test was developed and its analytical performance noon-2 PM: < OR = 0.21 mcg/dL has been validated pursuant to the CLIA regulations and is used for clinical purposes. It has not been cleared or approved by the FDA. This assay 10 PM-1 AM: < OR = 0.09 mcg/dL 8-10 AM: 0.04-0.56 mcg/dL CORTISOL, FREE, 24 HOUR URIN E (71642) Reviewed date:11/25/2024 08:41:01 PM Interpretation: Performing Lab:EZ, [facility],[address] [facility] CenterCA[address] Gia Antonio MD,PhD,DA Notes/Report: SPLIT 11/10/2024 FROM [id number] TOTAL VOLUME 1010 CORTISOL, FREE, URINE 27.4 4.0-50.0 m cg/24 h CORTISOL, FREE, URINE 19.1 ADULTS: 3.1-42.3 Reference Range: CREATININE, URINE 1.43 0.50-2.15 g/24 h It has not been cleared or approved by the FDA. This assay This test was developed and its analytical performance has been validated pursuant to the CLIA regulations and is characteristics have been determined by [facility]. used for clinical purposes. TEST IN QUESTION- [facility] ([id number]) Reviewed date:11/22/2024 11:29:12 AM Interpretation: Performing Lab:Jackie HINTON [facility]-[address], [place]DF[address] Pedro Barton MD Notes/Report: SPLIT 11/10/2024 FROM [id number] QUESTION/PROBLEM: questionable. The following date of service/collection is QUESTION: *DOC ON 2 SV ARE THE SAME CONTACT: COMMENT INFORMATION ABOVE AND FAX TO [phone] TO RESOLVE AUTHORIZED SIGNATURE TO PREVENT FURTHER DELAYS IN TESTING, PLEASE COMPLETE THIS ORDER. REQUESTED INFORMATION DEXAMETHASONE (42263) Reviewed date:11/18/2024 08:39:42 PM Interpretation: Performing Lab:Jackie RILEY/Nanette [facility],[address] [address] Prashanth maderaCA[address] Gia Antonio MD,PhD,DA Notes/Report: FASTING:YES FASTING: YES DEXAMETHASONE 183 Baseline: Less than 20 ng/dL Reference Ranges for Dexamethasone: characteristics have been determined by [facility]. It has not been cleared or approved by the FDA. This assay has been validated pursuant to the CLIA regulations and is used for clinical purposes. 1 mg dexamethasone overnight: 180-550 ng/dL (8:00-10:00 AM) This test was developed and its analytical performance CORTISOL, TOTAL (367) Reviewed date:11/13/2024 03:39:45 PM Interpretation: Performing Lab:Jackie HINTON-Kxtctq[address] Seth NarayanaKS[address] Pedro Barton MD Notes/Report: FASTING:YES FASTING: YES CORTISOL, TOTAL 1.0 L Reference Range: For 4 p.m.(3-5 p.m.) Specimen: 3.0-17.0 * Please interpret above results accordingly * Reference Range: For 8 a.m.(7-9 a.m.) Specimen: 4.0-22.0 CORTISOL, TOTAL (367) Reviewed date:01/07/2025 07:56:59 PM Interpretation: Performing Lab:Jackie HINTON-Ejkkgn[address] Seth NarayanaKS[address] Pedro Barton MD Notes/Report: FASTING:YES FASTING: YES CORTISOL, TOTAL 1.2 L Reference Range: For 4 p.m.(3-5 p.m.) Specimen: 3.0-17.0 * Please interpret above results accordingly * Reference Range: For 8 a.m.(7-9 a.m.) Specimen: 4.0-22.0 DEXAMETHASONE ([id number]) Reviewed date:01/14/2025 07:40:31 PM Interpretation: Performing Lab:Jackie RILEY/Nanette [facility],[address] [facility] CenterCA[address] Gia Antonio MD,PhD,DA Notes/Report: FASTING:YES FASTING: YES DEXAMETHASONE 246 characteristics have been determined by [facility]. used for clinical purposes. 1 mg dexamethasone overnight: 180-550 ng/dL (8:00-10:00 AM) has been validated pursuant to the CLIA regulations and is Reference Ranges for Dexamethasone: This test was developed and its analytical performance It has not been cleared or approved by the FDA. This assay Baseline: Less than 20 ng/dL Reason For Referral No Information Medications Medication SIG (Take, Route, Frequency, Duration) Notes Start Date End Date Status dexAMETHasone 1 MG Tablet 1 tablet Orall y at 10 pm night before 8 am cortisol; Duration: 1 days 12/18/2024 Active Eplerenone 25 MG Tablet 1 tablet Orally Once a day; Duration: 30 days 12/18/2024 Active dexAMETHasone 1 MG Tablet 1 tab(s) orall y at 10 pm night before 8 am cortisol; Duration: 1 days 04/10/2024 Active metFORMIN HCl ER 500 MG Tablet Extended Release 24 Hour 1 tablet with evening meal Orally Once a day; Duration: 90 days 05/08/2024 Active ALPRAZolam 0.25 MG Tablet ; Duration: 10 Days Unknown ARIPiprazole 10 MG Tablet ; Duration: 30 Days Unknown Nebivolol HCl 5 MG Tablet TAKE 1 TABLET BY MOUTH ONCE DAILY; Duration: 90 Days Unknown buPROPion HCl ER (XL) 150 MG Tablet Extended Release 24 Hour 1 tab(s) orally every 24 hours; Duration: 30 day(s) 04/10/2024 Unknown Vyvanse 30 MG Capsule ; Duration: 30 Days Unknown Social History Social History Additional Details Category Social Info Options Details Migrated Social History Migrated Social History (Alcohol:):yes 2-3 times weekly (Recreational drug use:):yes CANNABIS APPROX. 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) Active confirmed Problem Testicular dysfunction (46033308) Testicular dysfunction, unspecified (E29.9) Active confirmed Problem Obesity (236237474) Obesity, unspecified (E66.9) Active confirmed Problem Generalized anxiety disorder (87570445) Generalized anxiety disorder (F41.1) Active confirmed Problem Insomnia (402205156) Insomnia, unspecified (G47.00) Active confirmed Problem Stricture of esophagus (97975194) Esophageal obstruction (K22.2) Active confirmed Problem Prediabetes (077192549) Prediabetes (R73.03) Active confirmed Problem Essential hypertension (54724077) Essential hypertension (I10) Active confirmed Problem Obstructive sleep apnea (68496250) Obstructive sleep apnea (G47.33) Active confirmed Problem Insulin resistance (761686405) Insulin resistance (E88.819) Active confirmed Vital Signs Heart Rate 94 /min 02/18/2025 Respiratory Rate 12 /min 05/08/2024 Height-cm 180.34 cm 02/18/2025 Oximetry 96 % 02/18/2025 Blood pressure diastolic 89 mm Hg 02/18/2025 Weight-kg 95.26 kg 02/18/2025 Height 71 in 02/18/2025 Blood pressure systolic 132 mm Hg 02/18/2025 Weight 210.0 lbs 02/18/2025 BMI 29.29 kg/m2 02/18/2025 Encounters Encounter Location Date Provider Diagnosis [facility] [id number] [place], [place] [id number] 04/18/2024 Provider Migration Obesity, unspecified E66.[address] [facility] [address] [address] 12/18/2024 Luci Lai snf use of avila g Z79.8[address] Lai [address] [place] [phone] 04/10/2024 Luci Lai Testicular dysfuncti on, unspecified E29.9 ; Other fatigue R53.83 ; Obesity, unspecified E66.9 ; Insomnia, unspecified G47.00 ; Generalized anxiety disorder F41.1 and Nontoxic goiter, unspecified E04.[address] Lai [address] [place] [phone] 05/08/2024 Luci Lai Obesity, unspecified E66.9 ; Encounter for screening for lipoid disorders Z13.220 ; Secondary polycythemia D75.1 and Impaired fasting glucose R73.[address] 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 Lai [address] [place] [phone] 03/05/2025 Luci Lai Assessments Encounter Date Diagnosis (ICD Code) Assessment Notes Treatment Notes Treatment Clinical Notes Section Notes 04/10/2024 Testicular dysfunction, unspecified (ICD-10 - E29.9) 04/10/2024 Other fatigue (ICD-10 - R53.83) 05/08/2024 Obesity, unspecified (ICD-10 - E66.9) 05/08/2024 Encounter for screening for lipoid disorders (ICD-10 - Z13.220) 10/14/2024 Obesity, unspecified (ICD-10 - E66.9) 12/18/2024 Generalized anxiety disorder (ICD-10 - F41.1) 12/18/2024 Prediabetes (ICD-10 - R73.03) 12/18/2024 snf use of drug (ICD-10 - Z79.899) 02/18/2025 Disorder of pituitary gland, unspecified (ICD-10 - E23.7) 02/18/2025 Disorder of adrenal gland, unspecified (ICD-10 - E27.9) 02/18/2025 Hypercortisolism (ICD-10 - E24.9) 12/18/2024 Hypercortisolism (ICD-10 - E24.9) 04/18/2024 Obesity, unspecified (ICD-10 - E66.9) 05/08/2024 Secondary polycythemia (ICD-10 - D75.1) 04/10/2024 Obesity, unspecified (ICD-10 - E66.9) 04/10/2024 Insomnia, unspecified (ICD-10 - G47.00) 05/08/2024 Impaired fasting glucose (ICD-10 - R73.01) 12/18/2024 Obstructive sleep apnea (ICD-10 - G47.33) 02/18/2025 Insulin resistance (ICD-10 - E88.819) 02/18/2025 Impaired fasting glucose (ICD-10 - R73.01) 12/18/2024 Essential hypertension (ICD-10 - I10) 04/10/2024 Generalized anxiety disorder (ICD-10 - F41.1) 04/10/2024 Nontoxic goiter, unspecified (ICD-10 - E04.9) 12/18/2024 Dietary counseling and surveillance (ICD-10 - Z71.3) Spent 15 minutes preventative counseling patient on dietary recommendations and changes in setting of hyperglycemia- need to restrict refined sugars and processed foods and incorporate up to 150 minutes of moderate level activity weekly. 02/18/2025 Dietary counseling and surveillance (ICD-10 - Z71.3) Spent 15 minutes preventative counseling patient on dietary recommendations and changes in setting of hyperglycemia- need to restrict refined sugars and processed foods and incorporate up to 150 minutes of moderate level activity weekly. 04/10/2024 Other Assessment and Plan: 1. Low testosterone (hypogonadism)- Plan: Evaluate cortisol, pituitary, and adrenal axis with dexamethasone suppression test and fasting lab for pituitary and adrenal hormones. Consider Clomid treatment if needed, based on test results and patient's desire for fertility. 2. Insomnia, depression, anxiety- Plan: Monitor symptoms and consider further evaluation and management after addressing low testosterone issue. 3. High blood pressure- Plan: Encourage stress management and monitor blood pressure during follow-up visits. 4. Elevated liver enzymes (history of heavy alcohol consumption)- Plan: Continue monitoring liver enzymes and encourage the patient to maintain reduced alcohol intake. 5. Vitamin B12 deficiency- Plan: Encourage patient to take B12 supplement regularly and monitor B12 levels during follow-up visits. 6. High morning cortisol- Plan: Perform dexamethasone suppression test and evaluate pituitary and adrenal axis. 7. Thyroid fullness- Plan: Order thyroid ultrasound to evaluate for inflammation or nodules. Follow up with results and determine further management based on findings. Follow-up in 3-4 weeks to review test results and discuss further management. Spent 45 minutes preparing to see the patient (ex review of tests/chart), obtaining and / or reviewing separately obtained history, performing a medically appropriate examination and/or evaluation, counseling and educating the patient/family/careg iver, ordering medications, tests, or procedures, referring and communicating with other health customer care associate, documenting clinical information in the electronic or other health record, independently interpreting results and communicating results to the patient/family/careg iver and care coordinating patient plan. Patient alert and oriented x 4 and aware of discussion noted above and in agreeance to plan in management of hypogonadism, fatigue, insomnia/RUPA, goiter and weight/obesity. 05/08/2024 Other Assessment and Plan: 1. Borderline fasting sugar - Plan: Consider trial of metformin for potential weight loss and sugar improvement. Monitor sugars and A1c. Encourage dietary changes such as autoimmune paleo. 2. High cortisol levels - Plan: Confirm high cortisol with 24-hour urine cortisol test, repeat DEXA suppression test, and perform saliva test on two separate midnights. Check parathyroid hormone to ensure normal calcium levels. 3. Insomnia - Plan: Evaluate for sleep apnea as a potential cause of high hematocrit and cortisol levels. Encourage good sleep hygiene practices. 4. High hematocrit - Plan: Ensure adequate hydration before lab work. Repeat CBC and consider further evaluation for familial thrombocytopenias or JAK2 mutations if hematocrit remains high. 5. Hypertension - Plan: Monitor blood pressure closely, especially if considering Viagra. Encourage lifestyle modifications to help lower blood pressure. 6. Low libido - Plan: Cautiously consider Viagra, monitoring blood pressure closely. Continue to investigate intrinsic causes, such as cortisol levels, and monitor testosterone, hemoglobin, and hematocrit levels. 7. Thyroid, vitamin D, and other lab values - Plan: Continue to monitor thyroid levels, vitamin D, magnesium, liver enzymes, bone enzymes, and calcium. Ensure proper treatment of any underlying issues. 8. Cholesterol and insulin resistance - Plan: Repeat cholesterol panel and A1c to assess for insulin resistance. Encourage dietary and lifestyle modifications. 9. Follow-up - Plan: Schedule a follow-up appointment in 3-4 weeks to review lab results and discuss further management. 10. Medication - Plan: [facility] [address]. Instruct patient to drink 64-80 ounces of water daily before lab work. Spent 25 minutes preparing to see the patient (ex review of tests/chart), obtaining and / or reviewing separately obtained history, performing a medically appropriate examination and/or evaluation, counseling and educating the patient/family/careg iver, ordering medications, tests, or procedures, referring and communicating with other health customer care associate, documenting clinical information in the electronic or other health record, independently interpreting results and communicating results to the patient/family/careg iver and care coordinating patient plan. Patient alert and oriented x 4 and aware of discussion noted above and in agreeance to plan in management of obesity/weight management, low libido and finding of impaired glucose and secondary erythrocytosis with normal iron/ferritin. Due to the nature of telemedicine, the ability to do physical assessment was limited to what can be accomplished by patient directed telehealth visit based on instruction. Those limits are understood by the patient and myself. Impression is based on history, available information, and physical findings accomplished with telehealth visit. Chronic disease/problem list/ medication list reviewed and updated where indicated. Discussed diagnosis, plan including risks, benefits, and options of treatment. Advised to call for new, worsening, or persistent symptoms. Level of patient risk was of moderate complexity due to the documented nature of presentation, the information assessment required and the nature of the development of an evaluation and treatment plan as documented. PMH, FHx, SHx, Surgical Hx, Quality management review carried out and addressed as documented today as part of this visit. Medication list was reviewed and adjusted as indicated. Medication requiring a refill was addressed. Risk and benefits of any new medications were discussed and all questions were answered. 12/18/2024 Other Assessment and Plan: 1. 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 Hypertension- Discontinue nebivolol if blood pressure drops too low with new medication- Prescribe eplerenone 25 mg PO daily - Provide 30-day supply with 3 refills- Educate patient on potential side effects, including mild diuretic effect- Instruct patient to stay well-hydrated, especially in hot weather- Monitor blood pressure response over the next 3-4 weeks- Reassess efficacy of eplerenone at 2-month follow-up 3. Sleep Disturbance- Order home sleep study through [facility] - Patient to wear monitoring ring for 2 nights- Educate patient on sleep study process and importance of compliance- Review sleep study results at follow-up appointment- Consider further sleep interventions based on study results 4. Prediabetes/Insulin Resistance- Continue metformin (current dose not specified)- Order HbA1c test to assess glycemic control- Reinforce importance of dietary modifications and regular exercise- Reassess glucose control and insulin levels at follow-up appointment Spent 25 minutes preparing to see the patient (ex review of tests/chart), obtaining and / or reviewing separately obtained history, performing a medically appropriate examination and/or evaluation, counseling and educating the patient/family/careg iver, ordering medications, tests, or procedures, referring and communicating with other health customer care associate, documenting clinical information in the electronic or other health record, independently interpreting results and communicating results to the patient/family/careg iver and care coordinating patient plan. Patient alert and oriented x 4 and aware of discussion noted above and in agreeance to plan in management of anxiety, prediabetes, hypertension, obesity/weight management and concern for BEVERLY and hypercortisolism. 02/18/2025 Other Miguel Ángel presents with mild obstructive sleep apnea, borderline high fasting glucose, insulin resistance, anxiety, and lower back pain. There are concerns for possible pituitary microadenoma and adrenal issues. Possible Harper's SyndromeAssessment: Patient presents with subclinical signs of hypercortisolism, including anxiety, heart palpitations, and insomnia. ACTH is high normal at 51, suggesting a possible pituitary microadenoma. Cortisol levels show subclinical signs. Currently on eplerenone 25 mg daily for adrenal inflammation, with a potassium level of 4.4. Given the constellation of symptoms and laboratory findings, further evaluation for Tappen's syndrome is warranted.Plan:- Order MRI of the pituitary gland- Order CT scan of the adrenal glands- Initiate cortisol christiano treatment: - Start with 300 mg tablets every other day for two weeks - If potassium and blood pressure stable, increase to daily dosing - Goal: twice daily dosing over 2-3 months- Monitor blood pressure and leg swelling- Check potassium levels two weeks after starting treatment and after each dose adjustment- Coordinate with specialty pharmacy for medication management and insurance benefits- If imaging shows pituitary adenoma, consider surgical referral- Continue eplerenone 25 mg daily AnxietyAssessment: Patient reports anxiety as their biggest issue, with symptoms including feelings of dread, heart fluttering, and racing thoughts. A cardiac evaluation was performed, which was reportedly normal. These symptoms may be related to the suspected hypercortisolism, as cortisol can cause heart palpitations, insomnia, and anxiety due to widespread cortisol receptors in the body.Plan:- Monitor anxiety symptoms in relation to cortisol christiano treatment- Reassess anxiety levels at follow-up appointments Mild Obstructive Sleep ApneaAssessment: Patient has been diagnosed with mild obstructive sleep apnea. Sleep has improved, with patient now only waking up once to use the restroom.Plan:- Recommend sleeping on left side as the optimal position- Continue current management for mild obstructive sleep apnea Insulin Resistance and Impaired Glucose ToleranceAssessment: Patient has borderline high fasting glucose levels and insulin resistance. The exact source of insulin resistance is unknown and under investigation.Plan:- Monitor glucose levels- Further evaluate for underlying causes of insulin resistance HypercalcemiaAssessm ent: Patient's calcium levels are borderline high. No kidney stones are present.Plan:- Monitor calcium levels- Assess for symptoms of hypercalcemia at follow-up visits HyperlipidemiaAssess ment: Patient's cholesterol is slightly over 200, with LDL 7 points above the ideal range.Plan:- Monitor lipid levels- Reassess need for lipid-lowering therapy at follow-up visits Lower Back PainAssessment: Patient reports lower back pain. Kidney stones are not suspected as a cause.Plan:- Monitor pain levels- Reassess etiology of back pain at follow-up visits Spent 25 minutes preparing to see the patient (ex review of tests/chart), obtaining and / or reviewing separately obtained history, performing a medically appropriate examination and/or evaluation, counseling and educating the patient/family/careg iver, ordering medications, tests, or procedures, referring and communicating with other health customer care associate, documenting clinical information in the electronic or other health record, independently interpreting results and communicating results to the patient/family/careg iver and care coordinating patient plan. Patient alert and oriented x 4 and aware of discussion noted above and in agreeance to plan in management of impaired fasting glucose/insulin resistance, insomnia/anxiety, concern for pituitary/adrenal adenoma based on high ACTH and potential for adrenal pathology. Plan Of Treatment Pending Test Test Name Order Date *CT ABDOMEN W/O CONTRAST [id number] *MRI BRAIN W/O CONTRAST [SELLATURSICA] [id number] 02/18/2025 Ultrasound thyroid 04/10/2024 Insurance Providers Payer Name Payer Address Payer Phone Subscriber Number Group Number Insured Name Patient Relationship to Insured Coverage Start Date Coverage End Date [employer] [address] [address] [place], [place] [id number] [id number] Miguel Ángel Villegas Self - patient is the insured Medical (General) History Medical History History ICD Code LACK OF LIBIDO LOW TESTOSTERONE
--- OUTSIDE RECORDS SUMMARY | 2025-04-05 10:40 | XMS_ITS | Patient Health Record ---
Author Organization [employer] [facility] Address [address] [place] [address] Care Team Providers Care Board Of Directors Name Role Phone Luci Lai Primary Care Provider [phone] Migration, Provider Unavailable Unavailable Allergies Allergen (clinical drug ingredient) Drug/Non Drug Allergy documented on EMR Reaction Allergy Type Onset Date Status cefaclor Cefaclor Unknown Drug Allergy Active Results Component Value Reference Range Notes DEXAMETHASONE Reviewed date:04/26/2024 07:56:19 PM Interpretation: Performing Lab:[facility],, [address] [place], [address] Gia Antonio MD,PhD,DA Notes/Report: DEXAMETHASONE 263 Reference Ranges for Dexamethasone: Baseline: Less than 20 ng/dL 1 mg dexamethasone overnight: 180-550 ng/dL (8:00-10:00 AM) This test was developed and its analytical performance characteristics have been determined by [employer]. It has not been cleared or approved by FDA. This assay has been validated pursuant to the CLIA regulations and is used for clinical purposes. CORTISOL, TOTAL Reviewed date:04/19/2024 03:46:44 PM Interpretation: Performing Lab:[place] [facility], [address] [place], [address] Pedro Barton MD Notes/Report: COMPREHENSIVE METABOLIC PANE L Reviewed date:04/23/2024 09:10:55 PM Interpretation: Performing Lab:[place] [facility], [address], [place], [address] Pedro Barton Notes/Report: FASTING:YES FASTING: YES VITAMIN D, 25-HYDROXY, LC/MS /MS Reviewed date:04/24/2024 08:40:23 PM Interpretation: Performing Lab:[facility], [address], [place], [address] Pedro Barton MD Notes/Report: FASTING:YES FASTING: YES ACTH, PLASMA Reviewed date:05/01/2024 11:36:03 AM Interpretation: Performing Lab:[facility], [address] [facility] , [place], [address] Charlie Murry M.D.,PhD Notes/Report: FASTING:YES FASTING: YES T3, FREE Reviewed date:04/24/2024 08:40:41 PM Interpretation: Performing Lab:[facility], [address], [place], [address] Pedro Barton MD Notes/Report: FASTING:YES FASTING: YES DHEA SULFATE Reviewed date:04/24/2024 08:41:34 PM Interpretation: Performing Lab:[facility], [address], [place], [address] Pedro Barton MD Notes/Report: FASTING:YES FASTING: YES ESTRADIOL Reviewed date:04/24/2024 08:40:33 PM Interpretation: Performing Lab:[facility], [address] , [place], [address] Pedro Barton Notes/Report: FASTING:YES FASTING: YES FERRITIN Reviewed date:04/24/2024 08:44:00 PM Interpretation: Performing Lab:[facility], [address], [place], [address] Pedro Barton MD Notes/Report: FASTING:YES FASTING: YES FSH Reviewed date:04/24/2024 08:41:23 PM Interpretation: Performing Lab:[facility], [address], [place], [address] Pedro Barton MD Notes/Report: FASTING:YES FASTING: YES LH Reviewed date:04/24/2024 08:41:13 PM Interpretation: Performing Lab:[facility], [address], [place], [address] Pedro Barton MD Notes/Report: FASTING:YES FASTING: YES MAGNESIUM Reviewed date:04/24/2024 08:43:52 PM Interpretation: Performing Lab:[facility], [address], [address] Pedro Barton Notes/Report: FASTING:YES FASTING: YES CBC (INCLUDES DIFF/PLT) Reviewed date:04/23/2024 09:11:18 PM Interpretation: Performing Lab:[facility], [address] [place], [address] Pedro Barton Notes/Report: FASTING:YES FASTING: YES VITAMIN B12/FOLATE, SERUM PA SO Reviewed date:04/24/2024 08:40:51 PM Interpretation: Performing Lab:[facility], [address], [place], [place], [address] Pedro Barton MD Notes/Report: FASTING:YES FASTING: YES PROLACTIN Reviewed date:04/24/2024 08:41:05 PM Interpretation: Performing Lab:[facility], [address], [place], [place], [address] Pedro Barton MD Notes/Report: FASTING:YES FASTING: YES IRON AND TOTAL IRON BINDING CAPACITY Reviewed date:04/24/2024 08:41:43 PM Interpretation: Performing Lab:[facility], [address], [place], [place], [address] Pedro Barton MD Notes/Report: FASTING:YES FASTING: YES T4, FREE Reviewed date:04/23/2024 09:28:06 PM Interpretation: Performing Lab:[facility], [address] [place], [address] Pedro Barton Notes/Report: FASTING:YES FASTING: YES TSH Reviewed date:04/23/2024 09:28:24 PM Interpretation: Performing Lab:[facility], [address] [place], [address] [facility] Notes/Report: FASTING:YES FASTING: YES TESTOSTERONE, FREE (DIALYSIS ) AND TOTAL,MS Reviewed date:05/01/2024 11:35:56 AM Interpretation: Performing Lab:[facility], [address] [facility] [address], [address], [place], [address] Ramonita Fish MD,PhD Notes/Report: FASTING:YES FASTING: YES TESTOSTERONE, TOTAL, [place] [address] ng/dL For additional information, please refer to https://education.Easydiagn[employer]/faq/CYK596 (This link is being provided for informational/educational purposes only.) (Note) This test was developed and its analytical performance characteristics have been determined by [employer]. It has not been cleared or approved by the FDA. This assay has been validated pursuant to the CLIA regulations and is used for clinical purposes. TESTOSTERONE, FREE 103.6 35.0-155.0 pg/mL (Note) This test was developed and its analytical performance characteristics have been determined by [employer]. It has not been cleared or approved by the FDA. This assay has been validated pursuant to the CLIA regulations and is used for clinical purposes. [facility] [address] [facility] [address] [place] [id number] Ramonita Fish MD, PhD Reason For Referral No Information Medications Medication SIG (Take, Route, Frequency, Duration) Notes Start Date End Date Status buPROPion HCl ER (XL) 150 MG 1 tab(s) orally every 24 hours; Duration: 30 day(s) 04/10/2024 Unknown Vyvanse 30 MG ; Duration: 30 Days Unknown metFORMIN HCl ER 500 MG 1 tablet with ev ening meal Orally Once a day; Duration: 90 days 05/08/2024 Active dexAMETHasone 1 MG 1 tab(s) orally at 1 0 pm night before 8 am cortisol; Duration: 1 days 04/10/2024 Unknown Nebivolol HCl 5 MG TAKE 1 TABLET BY PRINCE ONCE DAILY; Duration: 90 Days Unknown ALPRAZolam 0.25 MG ; Duration: 10 Days Unknown ARIPiprazole 10 MG ; Duration: 30 Days Unknown Problems Problem Type SNOMED Code ICD Code Onset Dates Problem Status W/U Status Risk Notes Problem Insomnia (704190516) Insomnia, unspecified (G47.00) Active confirmed Problem Obesity (467675204) Obesity, unspecified (E66.9) Active confirmed Problem 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, 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 Problem Testicular dysfunction (13858964) Testicular dysfunction, unspecified (E29.9) Active confirmed Problem Generalized anxiety disorder (69244839) Generalized anxiety disorder (F41.1) Active confirmed Vital Signs Heart Rate 82 /min 05/08/2024 Respiratory Rate 12 /min 05/08/2024 Blood pressure diastolic 82 mm Hg 05/08/2024 Height 71 in 05/08/2024 Blood pressure systolic 132 mm Hg 05/08/2024 Weight 213 lbs 05/08/2024 BMI 29.7 kg/m2 05/08/2024 Encounters Encounter Location Date Provider Diagnosis [address] [address] 04/18/2024 Provider Migration Obesity, unspecified E66.9 [facility] - Luci L[place] [address] [place] [address] 04/10/2024 Luci Lai Testicular dysfunction, unspecified E29.9 ; Other fatigue R53.83 ; Obesity, unspecified E66.9 ; Insomnia, unspecified G47.00 ; Generalized anxiety disorder F41.1 and Nontoxic goiter, unspecified E04.9 [facility] [address] [place] [address] 05/12/2024 Luci Lai [facility] - Lucishirley [place] [address] [place] [address] 05/08/2024 Luci Lai Obesity, unspecified E66.9 ; Encounter for screening for lipoid disorders Z13.220 ; Secondary polycythemia D75.1 and Impaired fasting glucose R73.01 Assessments Encounter Date Diagnosis (ICD Code) Assessment Notes Treatment Notes Treatment Clinical Notes Section Notes 04/10/2024 Other fatigue (ICD-10 - R53.83) 04/10/2024 Testicular dysfunction, unspecified (ICD-10 - E29.9) 05/08/2024 Obesity, unspecified (ICD-10 - E66.9) 05/08/2024 Encounter for screening for lipoid disorders (ICD-10 - Z13.220) 04/18/2024 Obesity, unspecified (ICD-10 - E66.9) 04/10/2024 Obesity, unspecified (ICD-10 - E66.9) 05/08/2024 Secondary polycythemia (ICD-10 - D75.1) 04/10/2024 Insomnia, unspecified (ICD-10 - G47.00) 05/08/2024 Impaired fasting glucose (ICD-10 - R73.01) 04/10/2024 Generalized anxiety disorder (ICD-10 - F41.1) 04/10/2024 Nontoxic goiter, unspecified (ICD-10 - E04.9) 04/10/2024 Other Assessment and Plan: 1. Low [...] procedures, referring and communicating with other health health care coordinator, documenting clinical information in the electronic or [...] Medication - Plan: Send metformin prescription to [facility] on [address]. Instruct patient to drink 64-80 ounces of water daily before lab work. Spent 25 minutes preparing to see the patient (ex review of tests/chart), obtaining and / or reviewing separately obtained history, performing a medically appropriate examination and/or evaluation, counseling and educating the patient/family/careg iver, ordering medications, tests, or procedures, referring and communicating with other health health care coordinator, documenting clinical information in the electronic or [...] were discussed and all questions were answered. Plan Of Treatment Pending Test Test Name Order Date Ultrasound thyroid 04/10/2024 Insurance Providers Payer Name Payer Address Payer Phone Subscriber Number Group Number Insured Name Patient Relationship to Insured Coverage Start Date Coverage End Date [employer] [address] [address] [place] [address] [id number] Miguel Ángel Villegas Self - patient is the insured Medical (General) History Medical History History ICD Code LACK OF LIBIDO LOW TESTOSTERONE
[2025-04-05 10:47] VITALS: BP 139/96; PULSE 96; RESP 14; O2SAT 98
[2025-04-05 11:02] LABS: Hematocrit 45.7 % (42.0-52.0); Hemoglobin 15.4 g/dL (14.0-18.0); Immature Granulocyte Percent A 0.4 % (0-0.5); Lymphocytes Absolute Auto 1.61 K/mm3 (0.9-3.2); Mean Corpuscular HGB Conc 33.7 g/dl (32-36); Mean Corpuscular Hemoglobin 28.4 pg (26-34); Mean Corpuscular Volume 84.2 fl (80-100); Nucleated Red Blood Cells Absolute Auto 0.000 K/mm3 (0.0-0.012); Nucleated Red Blood Cells Perc 0.0 % (0.0-0.2); Platelet Count Result 337 k/mm3 (150-375); Red Blood Count 5.43 M/mm3 (4.6-6.20); White Blood Count 11.2 K/mm3 (4.5-10.0)
[2025-04-05] MEDS: SODIUM CHLORIDE 0.9% IV 1,000 ML 999 ML IV CONT (11:09)
[2025-04-05 11:10] VITALS: BP 145/98; PULSE 89; RESP 15; O2SAT 100
--- NOTE | 2025-04-05 11:15 | PC.NURSE ---
Pt states he is unable to provide urine at this time.
[2025-04-05 11:23] LABS: Alanine Aminotransferase 27 U/L (6-50); Albumin Level 4.7 g/dL (3.5-5.1); Alkaline Phosphatase 68 U/L (38-126); Anion Gap 8 mmol/L (4-12); Aspartate Amino Transferase 30 U/L (17-59); Bilirubin,Total 0.6 mg/dL (0.2-1.3); Blood Urea Nitrogen 8 mg/dL (9-20); Calcium 9.2 mg/dL (8.4-10.2); Carbon Dioxide 27 mmol/L (22-30); Chloride 100 mmol/L (98-107); Estimated CRCL calculation 109 ml/min; Estimated Glomerular Filt Rate > 60; Glucose 120 mg/dL (65-110); Lipase 120 U/L (23-300); Potassium 4.2 mmol/L (3.4-5.0); Sodium 135 mmol/L (137-145); Total Protein 7.5 g/dL (6.3-8.2)
--- NOTE | 2025-04-05 11:36 | ED.NAVMDI ---
HPI - Nausea/Vomiting/Diarrhea General Chief complaint: Nausea/Vomiting/Diarrhea Stated complaint: vomiting since last week. abdominal pain Time Seen by Provider: 04/05/25 10:24 Source: patient Mode of arrival: ambulatory Limitations: no limitations History of Present Illness HPI Narrative: Patient is a 34-year-old male who presents the ED with report of nausea, vomiting. Patient reports having intermittent nausea / vomiting for the past 1.5 weeks. Notes he did recently travel with this family, but his family members did not have similar symptoms. Reports N/V developed again on Saturday and he has had multiple episodes of emesis since then, including today. Has been taking Zofran without improvement. Reports some intermittent upper abdominal discomfort. Denies diarrhea, constipation, fevers. Related Data Allergies Allergy/AdvReac Type Severity Reaction Status Date / Time cefaclor Allergy Rash Verified 04/05/25 09:51 Review of Systems Review of Systems: All systems reviewed & are unremarkable except as noted in HPI. All systems reviewed & are unremarkable except as noted in HPI and below Exam Narrative: GENERAL: Well appearing, well-nourished, non-toxic, in no acute distress. HEAD: Normocephalic, atraumatic. RESPIRATORY: Airway patent, respirations nonlabored. Clear to auscultation bilaterally, no rales, rhonchi, wheezing. CARDIOVASCULAR: Regular rate and rhythm without murmurs, rubs, or gallops. ABDOMINAL: Soft, no significant focal tenderness, nondistended. Normoactive BS. MUSCULOSKELETAL: Moves all extremities. No gross deformities. SKIN: Warm, dry, normal color. NEURO: A&O X3. Speech clear. Cranial nerves II-XII grossly intact. Steady gait. No ataxic movements. PSYCHIATRIC: Appropriate mood and affect. Normal interaction. Course Vital Signs Vital signs: Vital Signs Temperature 99.0 F 04/05/25 09:55 Pulse Rate 109 H 04/05/25 09:55 Respiratory Rate 17 04/05/25 09:55 Blood Pressure 153/91 H 04/05/25 09:55 Pulse Oximetry 98 04/05/25 09:55 Oxygen Delivery Room Air 04/05/25 09:55 Temperature 98.9 F 04/05/25 13:27 Pulse Rate 87 04/05/25 13:27 Respiratory Rate 16 04/05/25 13:27 Blood Pressure 146/94 H 04/05/25 13:27 Pulse Oximetry 100 04/05/25 13:27 Oxygen Delivery Room Air 04/05/25 10:47 MDM - Nausea/Vomiting/Diarrhea MDM Narrative Medical decision making narrative: Patient presented to ED with intermittent N/V for the past 1.5 weeks. Patient was mildly tachycardic upon arrival. Afebrile here. In no acute distress. Cbc with blood cell count of 11.2. Neutrophil predominance. No bandemia. CMP is unremarkable. Stable electrolytes. Stable kidney function. Normal LFTs and lipase. UA w/o signs of infection/dehydration. CT scan of abdomen/pelvis was obtained and showing esophagitis, no other acute findings. Discussed lab and imaging findings with patient, high likelihood of viral gastroenteritis. He is feeling better with supportive therapy. Able to tolerate p.o. intake. Will discharge with Reglan, Bentyl, Pepcid. He does also have Zofran at home. Discussed continue dietary modification. Recommended follow-up with PCP. Given strict return precautions. Patient in agreement with plan. Discharged in stable condition. Medical Records Attestation: I reviewed the patient's medical records. Lab Data Attestation: I reviewed the patient's lab results. 04/05/25 10:55 04/05/25 10:55 Labs: Lab Results 04/05/25 04/05/25 Range/Units 10:55 12:08 WBC 11.2 H (4.5-10.0) K/mm3 RBC 5.43 (4.6-6.20) M/mm3 Hgb 15.4 (14.0-18.0) g/dL Hct 45.7 (42.0-52.0) % MCV 84.2 (80-100) fl MCH 28.4 (26-34) pg MCHC 33.7 (32-36) g/dl RDW 13.1 (11.5-14.5) % Plt Count 337 D (150-375) k/mm3 MPV 9.9 (7.4-10.4) fl Immature Gran % (Auto) 0.4 (0-0.5) % Neut % (Auto) 78.0 H (45.5-73.1) % Lymph % (Auto) 14.4 L (18.3-44.2) % [place] % (Auto) 6.7 (2.6-8.5) % Eos % (Auto) 0.1 (0-4.4) % Baso % (Auto) 0.4 (0.2-1.2) % Lymph # (Auto) 1.61 (0.9-3.2) K/mm3 [place] # (Auto) 0.8 H (0.1-0.6) K/mm3 Eos # (Auto) 0.0 (0-0.3) K/mm3 Baso # (Auto) 0.1 (0.0-0.1) K/mm3 Abs Immat Gran (auto) 0.04 H (0.00-0.031) K/mm3 Absolute Neuts (auto) 8.7 H (1.3-6.7) K/mm3 Absolute Nucleated RBC 0.000 (0.0-0.012) K/mm3 Nucleated RBC % 0.0 (0.0-0.2) % Sodium 135 L (137-145) mmol/L Potassium 4.2 (3.4-5.0) mmol/L Chloride 100 (98-107) mmol/L Carbon Dioxide 27 (22-30) mmol/L Anion Gap 8 (4-12) mmol/L BUN 8 L D (9-20) mg/dL Creatinine 0.89 (0.7-1.3) mg/dL Estim Creat Clear Calc 109 ml/min Estimated GFR > 60 (59 - ) Glucose 120 H (65-110) mg/dL Calcium 9.2 (8.4-10.2) mg/dL Total Bilirubin 0.6 (0.2-1.3) mg/dL AST 30 (17-59) U/L ALT 27 (6-50) U/L Alkaline Phosphatase 68 (38-126) U/L Total Protein 7.5 (6.3-8.2) g/dL Albumin 4.7 (3.5-5.1) g/dL Lipase 120 (23-300) U/L Urine Color Yellow (Yellow) Urine Appearance Clear (Clear) Urine pH 8.5 (5.0-9.0) Ur Specific [place] 1.019 (1.001-1.035) Urine Protein Negative (Negative) mg/dL Urine Glucose (UA) Negative (Negative) mg/dL Urine Ketones Negative (Negative) mg/dL Ur Blood (Man) Negative (Negative) Urine Nitrate Negative (Negative) Urine Bilirubin Negative (Negative) Urine Urobilinogen 0.2 (<2.0) mg/dL Leukocyte Esterase Rfl Negative (Negative) DENIS/UL Imaging Data Attestation: I personally reviewed and interpreted this imaging study as follows: Radiologist's impression: ITS Impressions Abdomen/Pelvis CT 04/05/25 11:55 IMPRESSION: 1. Mild distal esophagitis. 2. Otherwise no acute findings. Discharge Plan Discharge Clinical Impression: Gastroenteritis, Esophagitis Patient Disposition: Home Condition: Stable Instructions: Antibiotic Form, Dehydration (ED), Gastroenteritis (ED), Acute Nausea and Vomiting (ED) Additional Instructions: Utilize zofran/reglan as needed for further nausea. Take Pepcid daily for inflammation of your esophagus. Recommend Tylenol, Bentyl as needed for further abdominal discomfort/cramping. Increase fluid intake. Recommend electrolyte rich fluids, gatorade, pedialyte, body armour. Recommend clear liquids or bland diet until symptoms improve, such as bananas, rice, applesauce, toast, or crackers. Follow up with your primary care doctor for further evaluation. Return to the ED if you experience worsening or severe symptoms, unable to keep down food or drink, severe pain, fevers, rectal bleeding, vomiting blood, or any other symptoms of concern. Patient Language: Mauritanian Prescriptions: New dicyclomine 20 mg tablet 20 mg PO TID PRN (Reason: Abdominal Discomfort) Qty: 15 0RF famotidine 20 mg tablet 20 mg PO DAILY Qty: 30 0RF metoclopramide HCl 5 mg tablet 5 mg PO Q6H PRN (Reason: nausea and vomiting) Qty: 15 0RF Follow-up/Referrals: Jessica,CORNELL Fagan [Primary Care Provider, Unknown] Time of Disposition: 13:07
[2025-04-05] MEDS: FAMOTIDINE 20 MG/2 ML VIAL IV PUSH (12:13)
[2025-04-05] MEDS: ONDANSETRON INJ 4 MG/2 ML VIAL IV PUSH (12:13)
[2025-04-05 12:20] LABS: Add Urine Microscopic? NO; Appearance Urine Clear (Clear); Glucose Urine UA Negative (Negative); Leukocyte Esterase Ur Negative LEU/UL (Negative); Nitrate Urine Negative (Negative); Specific Grav Ur 1.019 (1.001-1.035)
[2025-04-05 13:27] VITALS: BP 146/94; PULSE 87; RESP 16; TEMP 37.2; O2SAT 100
== END 2025-04-05 13:29 | disposition home or self-care (01) ==
PROVIDERS: Emergency Provider Physician Assistant; PCP Physician Assistant
DX: K52.9 Noninfective gastroenteritis and colitis, unspecified (principal); K20.90 Esophagitis, unspecified without bleeding
CPT/HCPCS: 36415; 74177; 80053; 81003; 83690; 85025; 96361; 96374; 96375; 99284; J2405; J7030; Q9967

== ENCOUNTER 2025-05-12 06:33 | Emergency (ER) | payer OTHER, SELFPAY ==
[2025-05-12] VITALS (10 sets, daily range): BP systolic 123–169; BP diastolic 61–101; PULSE 82–101; RESP 16–18; TEMP 36.6; O2SAT 95–99
--- NOTE | ~2025-05-12 | US_ITS ---
EXAMINATION: US right upper quadrant DATE: 05/12/2025 08:35 INDICATION: Right upper quadrant pain TECHNIQUE: Multiple grayscale and Doppler ultrasound images of the abdomen were obtained. COMPARISON: April 21, 2020 FINDINGS: Liver size borderline enlarged and slightly increased in echotexture. No cholelithiasis or gallbladder wall thickening. Common bile duct: 3.6 mm Pancreas is incompletely visualized. No free fluid seen. The right kidney appears normal. IMPRESSION: 1. No cholelithiasis or gross sonographic evidence of acute cholecystitis. 2. Fatty liver changes with borderline hepatomegaly. Reviewed, dictated and finalized at location A. [employer]
[2025-05-12 06:57] LABS: Hematocrit 47.6 % (42.0-52.0); Hemoglobin 16.1 g/dL (14.0-18.0); Immature Granulocyte Percent A 0.5 % (0-0.5); Lymphocytes Absolute Auto 1.07 K/mm3 (0.9-3.2); Mean Corpuscular HGB Conc 33.8 g/dl (32-36); Mean Corpuscular Hemoglobin 29.1 pg (26-34); Mean Corpuscular Volume 85.9 fl (80-100); Nucleated Red Blood Cells Absolute Auto 0.000 K/mm3 (0.0-0.012); Nucleated Red Blood Cells Perc 0.0 % (0.0-0.2); Platelet Count Result 333 k/mm3 (150-375); Red Blood Count 5.54 M/mm3 (4.6-6.20); White Blood Count 13.7 K/mm3 (4.5-10.0)
[2025-05-12 07:11] LABS: Add Urine Microscopic? YES; Appearance Urine Clear (Clear); Glucose Urine UA Negative (Negative); Leukocyte Esterase Ur Negative LEU/UL (Negative); Nitrate Urine Negative (Negative); Non Pathogenic Casts 0-2; Specific Grav Ur 1.031 (1.001-1.035)
[2025-05-12 07:18] LABS: Alanine Aminotransferase 26 U/L (6-50); Albumin Level 5.2 g/dL (3.5-5.1); Alkaline Phosphatase 72 U/L (38-126); Anion Gap 9 mmol/L (4-12); Aspartate Amino Transferase 37 U/L (17-59); Bilirubin,Total 0.8 mg/dL (0.2-1.3); Blood Urea Nitrogen 13 mg/dL (9-20); Calcium 9.7 mg/dL (8.4-10.2); Carbon Dioxide 24 mmol/L (22-30); Chloride 102 mmol/L (98-107); Estimated Glomerular Filt Rate > 60; Glucose 135 mg/dL (65-110); Lipase 79 U/L (23-300); Potassium 4.0 mmol/L (3.4-5.0); Sodium 135 mmol/L (137-145); Total Protein 8.5 g/dL (6.3-8.2)
--- NOTE | 2025-05-12 09:17 | ED.NAVMDI ---
HPI - Nausea/Vomiting/Diarrhea General Chief complaint: Nausea/Vomiting/Diarrhea Stated complaint: N/V; throwing up blood Time Seen by Provider: 05/12/25 07:01 History of Present Illness HPI Narrative: Patient is a 34-year-old male who presents ER with vomiting. Has been occurring intermittently for last 2 months. No fevers or chills or sweats. Thinks he may have had a few coffee-grounds today. He occurs after eating. He has mild acid reflux at night. He had been treating it with sucralfate which is prescribed. He has follow-up with GI scheduled next month. No dark black stools. No loss of consciousness. No actual abdominal pain. Related Data Allergies Allergy/AdvReac Type Severity Reaction Status Date / Time cefaclor Allergy Rash Verified 04/05/25 09:51 Review of Systems Review of Systems: All systems reviewed & are unremarkable except as noted in HPI and below Constitutional: Constitutional: Reports no additional constitutional complaints Cardiovascular: Cardiovascular: Reports no additional cardiovascular complaints Respiratory: Respiratory: Reports no additional respiratory complaints Gastrointestinal: Gastrointestinal: Reports no additional gastrointestinal complaints Genitourinary: Genitourinary: Reports no additional male genitourinary complaints [facility] Past Medical History Medical History (Updated 05/12/25 @ 09:24 by Nelson Hung MD) Healthy adult male Surgical History Surgical History (Updated 05/12/25 @ 09:19 by Nelson Hung MD) No history of previous surgery Exam Narrative: GENERAL: Well-appearing, well-nourished, and in no acute distress. HEAD: Normocephalic, atraumatic. ENT: Mucous membranes moist. CHEST: Clear to auscultation. No respiratory distress. HEART: Regular rate and rhythm. Normal peripheral pulses. ABDOMEN: Soft, nontender, nondistended. EXTREMITIES: Normal range of motion. No edema. SKIN: Warm, dry, no rash. NEURO: Alert and oriented x3. PSYCH: Normal mood and affect. Course Course Emergency Course: Unremarkable ED course an unremarkable workup. Patient informed of labs and imaging results. Discharge home with PPI. Vital Signs Vital signs: Vital Signs Temperature 98 F 05/12/25 06:37 Pulse Rate 101 H 05/12/25 06:37 Respiratory Rate 18 05/12/25 06:37 Blood Pressure 169/93 H 05/12/25 06:37 Pulse Oximetry 96 05/12/25 06:37 Oxygen Delivery Room Air 05/12/25 06:37 Temperature 98 F 05/12/25 06:37 Pulse Rate 97 05/12/25 07:25 Respiratory Rate 16 05/12/25 07:25 Blood Pressure 150/96 H 05/12/25 07:25 Pulse Oximetry 97 05/12/25 07:25 Oxygen Delivery Room Air 05/12/25 06:37 MDM Differential Diagnosis Differential Diagnosis: Esophagitis, acute upper GI bleed, gastric ulcer, biliary colic, cholecystitis, ACS. Medical Records I have reviewed the following patient records and this information was taken into consideration when formulating the assessment and plan.: previous ER visits (04/2025, CT with esophagitis) Lab Data 05/12/25 06:47 05/12/25 06:47 Labs: Lab Results 05/12/25 Range/Units 06:47 WBC 13.7 H (4.5-10.0) K/mm3 RBC 5.54 (4.6-6.20) M/mm3 Hgb 16.1 (14.0-18.0) g/dL Hct 47.6 (42.0-52.0) % MCV 85.9 (80-100) fl MCH 29.1 (26-34) pg MCHC 33.8 (32-36) g/dl RDW 14.0 (11.5-14.5) % Plt Count 333 (150-375) k/mm3 MPV 10.0 (7.4-10.4) fl Immature Gran % (Auto) 0.5 (0-0.5) % Neut % (Auto) 86.6 H (45.5-73.1) % Lymph % (Auto) 7.8 L (18.3-44.2) % [place] % (Auto) 4.8 (2.6-8.5) % Eos % (Auto) 0.1 (0-4.4) % Baso % (Auto) 0.2 (0.2-1.2) % Lymph # (Auto) 1.07 (0.9-3.2) K/mm3 [place] # (Auto) 0.7 H (0.1-0.6) K/mm3 Eos # (Auto) 0.0 (0-0.3) K/mm3 Baso # (Auto) 0.0 (0.0-0.1) K/mm3 Abs Immat Gran (auto) 0.07 H (0.00-0.031) K/mm3 Absolute Neuts (auto) 11.8 H (1.3-6.7) K/mm3 Absolute Nucleated RBC 0.000 (0.0-0.012) K/mm3 Nucleated RBC % 0.0 (0.0-0.2) % Sodium 135 L (137-145) mmol/L Potassium 4.0 (3.4-5.0) mmol/L Chloride 102 (98-107) mmol/L Carbon Dioxide 24 (22-30) mmol/L Anion Gap 9 (4-12) mmol/L BUN 13 D (9-20) mg/dL Creatinine 0.89 (0.7-1.3) mg/dL Estim Creat Clear Calc Not Reportable Estimated GFR > 60 (59 - ) Glucose 135 H (65-110) mg/dL Calcium 9.7 (8.4-10.2) mg/dL Total Bilirubin 0.8 (0.2-1.3) mg/dL AST 37 (17-59) U/L ALT 26 (6-50) U/L Alkaline Phosphatase 72 (38-126) U/L Total Protein 8.5 H (6.3-8.2) g/dL Albumin 5.2 H (3.5-5.1) g/dL Lipase 79 (23-300) U/L Urine Color Yellow (Yellow) Urine Appearance Clear (Clear) Urine pH 7.0 (5.0-9.0) Ur Specific [place] 1.031 (1.001-1.035) Urine Protein 1+ H (Negative) mg/dL Urine Glucose (UA) Negative (Negative) mg/dL Urine Ketones 1+ H (Negative) mg/dL Ur Blood (Man) Negative (Negative) Urine Nitrate Negative (Negative) Urine Bilirubin Negative (Negative) Urine Urobilinogen 1.0 (<2.0) mg/dL Leukocyte Esterase Rfl Negative (Negative) DENIS/UL Urine RBC 0-2 (0-2) /hpf Urine WBC 0-5 (0-3) /hpf Ur Squamous Epith Cells None seen (Few) /hpf Urine Bacteria None seen /hpf Urine Casts 0-2 Imaging Data Radiologist's impression: ITS Impressions Upper Quadrant Ultrasound 05/12/25 08:41 IMPRESSION: 1. No cholelithiasis or gross sonographic evidence of acute cholecystitis. 2. Fatty liver changes with borderline hepatomegaly. Discharge Plan Discharge Clinical Impression: Esophagitis Patient Disposition: Home Condition: Stable Instructions: Esophagitis (ED) Additional Instructions: Return to the emergency department if you develop severe abdominal pain, severe nausea and vomiting to the point where you are unable to keep down fluids, if you develop chest pain or difficulty breathing, blood in your stool, dizziness or fainting, or if you develop any other new or concerning symptoms as these could be signs of more serious medical illness. Try to stay well hydrated. Patient Language: Kazakh Prescriptions: New omeprazole 40 mg capsule,delayed release(DR/EC) 40 mg PO DAILY Qty: 14 0RF No Action dicyclomine 20 mg tablet 20 mg PO TID PRN (Reason: Abdominal Discomfort) Qty: 15 0RF famotidine 20 mg tablet 20 mg PO DAILY Qty: 30 0RF metoclopramide HCl 5 mg tablet 5 mg PO Q6H PRN (Reason: nausea and vomiting) Qty: 15 0RF Follow-up/Referrals: Jessica,CORNELL Fagan [Primary Care Provider, Unknown] - 1 Week
== END 2025-05-12 09:35 | disposition home or self-care (01) ==
PROVIDERS: Emergency Medicine; Emergency Provider Emergency Medicine; PCP Physician Assistant
DX: K20.90 Esophagitis, unspecified without bleeding (principal)
CPT/HCPCS: 36415; 76705; 80053; 81001; 83690; 85025; 99284